=== PATIENT | female | born 1955 | race Caucasian/White ===

== ENCOUNTER 2017-05-07 13:24 | Inpatient (IN) | payer OTHER ==
[2017-05-07 15:18] LABS: Troponin I 0.016 ng/mL (< 0.028)
--- NOTE | 2017-05-07 15:53 | HP ---
PRIMARY CARE PHYSICIAN: Dr. Olsen at [facility]. REASON FOR ADMISSION: Chest pain, rule out acute coronary syndrome, pneumonia, hypoxia. HISTORY OF PRESENT ILLNESS: A 61-year-old female who has history of small cell lung cancer. She has finished chemotherapy last year in June. Subsequently , she also finished radiation therapy to the chest as well as the brain in October of this year. Patient had MRI brain which was negative for any metastasis in October as well as CT chest also showed improvement. Since then, the patient is no longer on any kind of chemoradiation therapy. The patient has no oxygen at home. For the last week, patient was having increasing cough productive of sputum, but no hemoptysis. The patient also lost significant amount of weight over the last few months. On Sunday, patient was having several times nausea and vomiting. The patient was not feeling good on Sunday, Sunday as well as Sunday. On Sunday morning, the patient was feeling burning discomfort in substernal area and all of suddenly she was feeling as if somebody pulling in her chest and grabbing sharp pain which goes about 10/10 in intensity and that is why she was trying to make appointment with primary care physician, but she cannot see her today and that is why the patient ended up to [facility]. Patient also has radiation site pain which is chronic for her and that has not changed, but this another pain in the substernal area was new and that made her apprehensive and that is why she went to [facility]. When she went to [facility], she was slightly hypertensive, tachypneic, her saturation was 87% on room air. With oxygen, her saturation improved and she was also afebrile. Over there, patient was given Rocephin, azithromycin, Solu-Medrol 125 mg, DuoNeb therapy, nitroglycerin, IV fluid, and aspirin, and subsequently she was transferred to our emergency room for rule out ACS and for suspected pneumonia. The patient had chest x-ray over there that showed decrease in cavitation in right upper lobe and consolidative changes, which is also there previously. Patient's chest pain is pleuritic in nature associated with shortness of breath and cough productive of yellowish white sputum. She denies any fever or chills. She denies any constipation or diarrhea. She denies any UTI symptoms. She denies any headache. She denies any focal motor symptoms. REVIEW OF SYSTEMS: The following complete review of systems was negative, unless otherwise mentioned in the HPI or below: Constitutional: Weight loss or gain, ability to conduct usual activities. Skin: Rash, itching. Eyes: Double vision, pain. ENT/Mouth: Nose bleeding, neck stiffness, pain, tenderness. Cardiovascular: Palpitations, dyspnea on exertion, orthopnea. Respiratory: Shortness of breath, wheezing, cough, hemoptysis, fever or night sweats. Gastrointestinal: Poor appetite, abdominal pain, heartburn, nausea, vomiting, constipation, or diarrhea. Genitourinary: Urgency, frequency, dysuria, nocturia. Musculoskeletal: Pain, swelling. Neurologic/Psychiatric: Anxiety, depression. Allergy/Immunologic: Skin rash, bleeding tendency. Please see my HPI for pertinent positive and negative. All other review of systems reviewed and negative except as mentioned in the HPI. PAST MEDICAL HISTORY: Small cell lung cancer treated with chemotherapy and radiation, COPD, chronic low back pain, hypertension. PAST SURGICAL HISTORY: Brain tumor removal, left neck lymph node removal, appendicectomy, and hysterectomy. PAST PSYCHIATRIC HISTORY: Anxiety and depression. SOCIAL HISTORY: Patient smokes about 1 pack per day. She lives at home. She denies any illicit drug abuse. She denies any alcohol abuse. FAMILY HISTORY: No strong family history of premature coronary artery disease, stroke or cancer. CURRENT HOME MEDICATIONS: Bisoprolol 5 mg p.o. daily, Zoloft 25 mg p.o. daily, Xanax twice daily p.r.n., Zofran p.r.n., [place] p.r.n., ProAir HFA as needed. EMERGENCY ROOM COURSE: Patient was given Rocephin, azithromycin, IV fluid, aspirin, nitro patch, Solu-Medrol 125 mg, and DuoNeb therapy at [facility]. ALLERGY: No known drug allergy. PHYSICAL EXAMINATION: VITAL SIGNS: Currently, blood pressure 137/83, pulse 86, respiratory rate 17, temperature 98.5, saturation 99% on 3 liter oxygen, saturation was 87% on room air at [facility], weight 39.4 kilograms. GENERAL: Patient is currently alert, awake, cachectic, no obvious acute distress. HEAD: Normocephalic, atraumatic. EYES: Pupils round, reactive to light. Extraocular muscles intact. ENT: Oropharynx within normal limits. Moist mucous membranes. No oral lesions. No pharyngeal erythema, no exudate. NECK: Supple. Range of motion is normal. No meningeal signs of irritation. LUNGS: Breath sounds reduced bilaterally, predominantly on the right upper lobe. No rales, no wheezes, no end expiratory wheezing, no muscles of respiration in use. CARDIAC: S1 and S2 regular. No murmur, no gallop, no rub. ABDOMEN: Soft, bowel sounds present, nontender, nondistended. No organomegaly , no mass, no suprapubic tenderness. BACK: Examination unremarkable, no CVA tenderness. EXTREMITIES: Upper extremity, passive movements of all joints are normal. Lower extremity, no edema. Good peripheral pulsation. No calf tenderness. SKIN: No skin rash. HEMATOLOGICAL SYSTEM: No lymphadenopathy. PSYCHIATRIC: Normal affect. HEMATOLOGICAL SYSTEM: No lymphadenopathy. NEUROLOGIC: Nonfocal examination. SIGNIFICANT LABORATORY DATA AND IMAGIN. CBC: WBC 12.8, hemoglobin 17.4, MCV 102.9, platelets 346 with bandemia and left shift. VBG: pH 7.44, pCO2 45.0, bicarbonate 30. BMP: Sodium 132, potassium 4.0, chloride 91, carbon dioxide 27, BUN 13, creatinine 0.63. Glucose 124. Lactic acid 2.0, AST 16, ALT 10, alkaline phosphatase 57, albumin 4.0. CK 79, CK-MB 4.8, troponin I less than 0.010. 2. EKG showing sinus arrhythmia and T-wave inversion in lead III, II, and AVF. EKG done over there, it showed inferior lateral ischemia. ASSESSMENT AND PLAN/IMPRESSION: 1. Acute chest pain. The patient's chest pain description is atypical. She has 2 types of chest pain on the right side, which is chronic pain after radiation and this pain substernally, which was started today was concerning for coronary artery disease and angina. Her EKG showing nonspecific ST-T changes in inferolateral wall. The patient has risk factors for coronary artery disease including her smoking history and hypertension. We will keep this patient in the hospital. We will do serial cardiac enzymes and rule out acute coronary syndrome. We will continue with aspirin 325 mg p.o. daily and nitroglycerin on p.r.n. basis. We will check lipid profile for risk stratification. Another possibility of her chest pain could be acid reflux given her several nausea and vomiting on Sunday and subsequently pain started. We will also treat that with the Protonix 40 mg p.o. daily, patient is feeling weak and she does not want to go for any more testing like stress test and that is why we will only conservatively monitor on telemetry floor for any arrhythmias. 2. Hypoxia. The patient's saturation was 87% on room air at [facility], this patient is not using oxygen at home. At this point, I am suspecting that because patient has pain on the right side which is also pleuritic in nature and there is another pain, maybe she had very poor respiratory effort, but she is also having ongoing smoking and she is at risk for chronic respiratory failure. During this admission, we will do 4-minute walk and we will assess her oxygen saturation and if below 88%, then we will arrange home oxygen upon discharge. 3. Right upper lobe consolidative changes. Based on current x-ray, cavity is reduced in size. When we compared old x-ray, almost pretty much each time, she had similar finding, but underlying superinfection cannot be entirely excluded and that is why we will treat her today with IV Levaquin and upon discharge we will consider p.o. Levaquin therapy. Patient also has increased cough. 4. Chronic obstructive pulmonary disease. The patient will be given DuoNeb therapy every 6 hourly, Dulera 2 puffs inhalation b.i.d. and we will also try Solu-Medrol 20 mg IV q.8 hourly, Mucinex 600 mg 3 times daily and we will assess for her oxygen requirement. 5. Small cell lung cancer. Patient already well treated with chemo and radiation therapy. Patient has appointment with Oncology on this month on , after 10 days. The patient will follow up with Oncology Clinic and further evaluation and treatment will defer to Oncology Clinic. 6. Hypertension. We will continue bisoprolol 5 mg p.o. daily. 7. Anxiety and depression. We will continue Zoloft 25 mg p.o. daily and Xanax 0.25 mg twice daily p.r.n. 8. Protein calorie malnutrition. Patient has cachexia and she has had significant weight loss. Patient will be given nutritional support with Ensure while in hospital. 9. Macrocytosis. We will start folic acid, vitamin B12, and multivitamin therapy while in hospital. 10. Deep venous thrombosis prophylaxis, Lovenox 30 mg subcutaneously daily. 11. Gastrointestinal prophylaxis, Protonix 40 mg p.o. daily. CODE STATUS: The patient is FULL CODE, this was discussed with her. Disposition plan based on clinical course. We are expecting patient's stay in the hospital more than 2 midnights. Plan of care discussed with the patient in detail. MTDD
[2017-05-07] MEDS ORDERED: Ondansetron ODT 4 MG TAB SL PRN (16:49)
[2017-05-07] MEDS ORDERED: Ondansetron HCl/PF 4 MG/2 ML Vial IVP PRN (16:49)
[2017-05-07] MEDS ORDERED: Sodium Chloride 0.65% Nasal 44 ML BOT EA NARE PRN (17:22)
[2017-05-07] MEDS ORDERED: Chloraseptic Spray 180 ml Bottle PO PRN (17:22)
[2017-05-07] MEDS ORDERED: Zolpidem Tartrate 5 MG TAB PO PRN (17:22)
[2017-05-07] MEDS ORDERED: ALPRAZolam 0.25 MG TAB PO PRN (17:22)
[2017-05-07] MEDS ORDERED: Milk Of Magnesia 30 ML UDCUP PO PRN (17:22)
[2017-05-07] MEDS ORDERED: Diabetic Tussin 200 MG/10 ML UDCUP PO PRN (17:22)
[2017-05-07] MEDS ORDERED: Senokot 8.6 MG TAB PO PRN (17:22)
[2017-05-07] MEDS ORDERED: Mag-Al 1200 mg/1200 mg/30 ML UDCUP PO PRN (17:22)
[2017-05-07] MEDS ORDERED: Benzonatate 100 MG CAP PO PRN (17:22)
[2017-05-07] MEDS ORDERED: Loratadine 10 MG TAB PO PRN (17:22)
[2017-05-07] MEDS ORDERED: Nitroglycerin 0.4 MG TAB (25 Tab Bottle) PO PRN (17:22)
[2017-05-07] MEDS ORDERED: Ondansetron ODT 4 MG TAB PO PRN (17:22)
[2017-05-07] MEDS ORDERED: Acetaminophen 325 MG TAB PO PRN (17:22)
[2017-05-07] MEDS ORDERED: Loperamide HCl 2 MG CAP PO PRN (17:22)
[2017-05-07 17:32] VITALS: BMI 16.6
[2017-05-07] MEDS ORDERED: FLU VACC QS2017-18 36 mo. & older 0.5 ML SYRINGE IM ONE (18:15)
[2017-05-07 18:25] LABS: Troponin I 0.018 ng/mL (< 0.028)
[2017-05-07] MEDS: Mometasone/Formoterol 120 PUFF INHALER INH SCH (18:30)
[2017-05-07] MEDS: HYDROcodone/Acetaminophen 5/325 mg Tablet PO PRN (18:35)
[2017-05-07] MEDS: Sodium Chloride 0.9% 1,000 ML IV SCH ×2 (18:37)
[2017-05-07 19:50] LABS: Bilirubin Small (Negative); Blood, Urine Negative (Negative); Glucose, Urine (Dipstick) Negative (Negative); Ketone, Urine 15 mg/dL (Negative); Nitrite Negative (Negative); Protein, Urine (Dipstick) Trace mg/dL (Neg-Trace)
[2017-05-07 19:54] LABS: Bacteria/HPF Rare-Few HPF (None Seen); Hyaline Casts/LPF 7-10 HYALINE CAST LPF (0-3 Hyaline)
[2017-05-07 20:14] LABS: RBC/HPF None Seen HPF (0-3); Renal Epithelial None Seen HPF (0-3); Transitional Epithelial NONE SEEN HPF (0-3)
[2017-05-07] MEDS: guaiFENesin ER 600 MG TAB PO SCH (20:57)
[2017-05-07 21:22] LABS: Troponin I Less than 0.010 ng/mL (< 0.028)
[2017-05-08] MEDS: HYDROcodone/Acetaminophen 5/325 mg Tablet PO PRN ×5 (00:36→19:19)
[2017-05-08] MEDS: Sodium Chloride 0.9% 1,000 ML IV SCH ×4 (00:53→22:05)
[2017-05-08 05:14] LABS: ALT (SGPT) Less than 7 U/L (8-55); AST (SGOT) 14 U/L (5-34); Alkaline Phosphatase 46 U/L (40-150); Anion Gap 11 mmol/L (10-20); BUN (Urea Nitrogen) 10 mg/dL (9.8-20.1); Bilirubin, Total 0.6 mg/dL (0.2-1.2); Calc. Creatinine Clearance 79 mL/min (70-130); Calcium 8.6 mg/dL (7.8-10.44); Carbon Dioxide 25 mmol/L (23-31); Chloride 96 mmol/L (98-107); Cholesterol 124 mg/dl (< 200 Desired); Estimated GFR-MDRD Greater than 90; Globulin 2.7 g/dL (2.4-3.5); LDL Cholesterol, Calculated 49 mg/dL; Protein, Total 6.1 g/dL (6.0-8.3)
[2017-05-08 05:20] LABS: #Lymphocytes 0.5 thou/uL (1.20-3.40); #Monocytes 0.4 thou/uL (0.11-0.59); #Neutrophils 5.7 thou/uL (1.40-6.50); %Eosinophils 0.1 % (0.0-10.0); %Lymphocytes 7.9 % (21.0-51.0); Hematocrit 40.6 % (36.0-47.0); Macrocytosis SLIGHT = 6-15 cells (100X) (0-5/hpf); Mean Platelet Volume 5.9 fL (7.4-10.4); Red Blood Cell (RBC) Count 3.88 mill/uL (4.20-5.40); White Blood Cell (WBC) Count 6.6 thou/uL (4.8-10.8)
[2017-05-08] MEDS: Mometasone/Formoterol 120 PUFF INHALER INH SCH ×2 (07:56→19:05)
[2017-05-08] MEDS: Aspirin 81 mg Enteric Coated Tablet PO SCH (08:29)
[2017-05-08] MEDS: Bisoprolol Fumarate 5 MG TAB PO SCH (08:29)
[2017-05-08] MEDS: Cyanocobalamin (Vitamin B-12) 1,000 MCG TAB PO SCH (08:30)
[2017-05-08] MEDS: guaiFENesin ER 600 MG TAB PO SCH ×2 (08:30→21:57)
[2017-05-08] MEDS: Multivitamin W/ Minerals 1 TAB PO SCH (08:30)
[2017-05-08] MEDS: Enoxaparin Sodium 30 MG/0.3 ML SYRINGE SC SCH (08:30)
[2017-05-08] MEDS: Folic Acid 1 MG TAB PO SCH (08:30)
--- NOTE | 2017-05-08 13:24 | PDOC.PN ---
- Subjective Encounter Start Date: 05/08/17 Encounter Start Time: 10:00 Patient seen and examined. Feels better. Some cough. No overnight events - Objective Resuscitation Status: Resuscitation Status FULL:Full Resuscitation MAR Reviewed: Yes Vital Signs & Weight: Vital Signs (12 hours) Temp Pulse Resp BP Pulse Ox 05/08/17 11:23 98.6 F 63 20 124/71 98 05/08/17 08:00 98.6 F 69 15 05/08/17 07:56 95 05/08/17 07:53 69 15 97 05/08/17 07:21 98.6 F 77 14 150/85 H 99 05/08/17 04:00 98.4 F 74 20 124/92 H 99 Weight Admit Weight 97 lb Weight 97 lb I&O: 05/07/17 05/08/17 05/09/17 06:59 06:59 06:59 Intake Total 944 240 Balance 944 240 Result Diagrams: 05/08/17 04:29 05/08/17 04:29 EKG Reviewed by me: Yes (Tele SR) Phys Exam - Physical Examination Constitutional: NAD Respiratory: no rales Scat rales/wheezing Cardiovascular: RRR, no rub Gastrointestinal: soft, non-tender, positive bowel sounds Musculoskeletal: no edema Neurological: non-focal, moves all 4 limbs Psychiatric: A&O x 3 Dx/Plan (1) Acute respiratory failure with hypoxia Code(s): J96.01 - ACUTE RESPIRATORY FAILURE WITH HYPOXIA Status: Acute (2) Chest pain Code(s): R07.9 - CHEST PAIN, UNSPECIFIED Status: Acute (3) Pneumonia Code(s): J18.9 - PNEUMONIA, UNSPECIFIED ORGANISM Status: Acute Comment: suspected Pneumococcal (4) COPD (chronic obstructive pulmonary disease) Status: Chronic (5) other issues per previous notes Status: Chronic Comment: HTN, Anxiety, Severe Protein Calorie Malnutrition, Macrocytosis, Lung Ca, Hyponatremia ?chronic - Plan cont current plan of care, continue antibiotics, DVT proph w/lovenox, DVT proph w/SCDs * Cont current meds as below * AM labs * Consult Pulmonary * Cont nebs Review of Systems - Review of Systems Cardiovascular: negative: Chest Pain, Palpitations, Orthopnea, Paroxysmal Noc. Dyspnea, Edema, Light [place]aded[place], Other Gastrointestinal: negative: Nausea, Vomiting, Abdominal Pain, Diarrhea, Constipation, Melena, Hematochezia, Other - Medications/Allergies Allergies/Adverse Reactions: Allergies Allergy/AdvReac Type Severity Reaction Status Date / Time No Known Allergies Allergy Verified 06/08/16 16:43 Medications: Current Medications Acetaminophen (Tylenol) 650 mg PO Q4H PRN PRN Reason: Headache/Fever or Pain Hydrocodone Bitart/Acetaminophen ([place] 5/325) 1 tab PO Q4H PRN PRN Reason: Moderate Pain (4-6) Last Admin: 05/08/17 11:14 Dose: 1 tab Al Hydroxide/Mg Hydroxide (Maalox) 30 ml PO Q6H PRN PRN Reason: Heartburn or Indigestion Albuterol/Ipratropium (Duoneb) 3 ml NEB [id number] [facility] Last Admin: 05/08/17 07:53 Dose: 3 ml Alprazolam (Xanax) 0.25 mg PO BIDPRN PRN PRN Reason: Anxiety Aspirin (Ecotrin) 81 mg PO DAILY [facility] Last Admin: 05/08/17 08:29 Dose: 81 mg Benzonatate (Tessalon) 100 mg PO Q4H PRN PRN Reason: Cough Bisoprolol Fumarate (Zebeta) 5 mg PO DAILY [facility] Last Admin: 05/08/17 08:29 Dose: 5 mg Cyanocobalamin (Vitamin B-12) 1,000 mcg PO DAILY [facility] Last Admin: 05/08/17 08:30 Dose: 1,000 mcg Enoxaparin Sodium (Lovenox) 30 mg SC 0900 [facility] Last Admin: 05/08/17 08:30 Dose: 30 mg Folic Acid (Folvite) 1 mg PO DAILY [facility] Last Admin: 05/08/17 08:30 Dose: 1 mg Guaifenesin (Robitussin Sf) 200 mg PO Q4H PRN PRN Reason: Cough Guaifenesin (Mucinex) 600 mg PO Q12HR [facility] Last Admin: 05/08/17 08:30 Dose: 600 mg Hydralazine HCl (Apresoline) 10 mg SLOW IVP Q4H PRN PRN Reason: Systolic BP > 180 Levofloxacin 500 mg/ Device 100 mls @ 100 mls/hr IVPB Q24HR [facility] Last Admin: 05/07/17 18:36 Dose: 100 mls Sodium Chloride (Normal Saline 0.9%) 1,000 mls @ 75 mls/hr IV .[id number] [facility] Last Admin: 05/08/17 08:33 Dose: 1,000 mls Iron/Minerals/Multivitamins (Theragran M) 1 tab PO DAILY [facility] Last Admin: 05/08/17 08:30 Dose: 1 tab Loperamide HCl (Imodium) 2 mg PO PRN PRN PRN Reason: Diarrhea/Loose Stools Loratadine (Claritin) 10 mg PO DAILYPRN PRN PRN Reason: Sinus Symptoms Magnesium Hydroxide (Milk Of Magnesium) 30 ml PO DAILYPRN PRN PRN Reason: Constipation Methylprednisolone Sodium Succinate (Solu-Medrol) 20 mg IVP 0400,1200,2000 [facility] Last Admin: 05/08/17 11:15 Dose: 20 mg Mometasone Furoate/Formoterol Fumar (Dulera 200 Mcg/5 Mcg Inhaler) 2 puff INH BID-RT [facility] Last Admin: 05/08/17 07:56 Dose: 2 puff Nitroglycerin (Nitrostat) 0.4 mg PO Q5MIN PRN PRN Reason: Chest Pain Ondansetron HCl (Zofran Odt) 4 mg PO Q6H PRN PRN Reason: Nausea/Vomiting Ondansetron HCl (Zofran) 4 mg IVP Q6H PRN PRN Reason: Nausea/Vomiting Pantoprazole Sodium (Protonix) 40 mg PO 2100 [facility] Last Admin: 05/07/17 20:57 Dose: 40 mg Phenol (Chloraseptic [place] 180 Ml Bot) 0 ml PO PRN PRN PRN Reason: Sore Throat Senna (Senokot) 2 tab PO HSPRN PRN PRN Reason: Constipation Sertraline HCl (Zoloft) 25 mg PO DAILY [facility] Last Admin: 05/08/17 08:30 Dose: 25 mg Sodium Chloride ([place] Nasal [place] 0.65%) 0 ml EA NARE QIDPRN PRN PRN Reason: Nasal Congestion Zolpidem Tartrate (Ambien) 5 mg PO HSPRN PRN PRN Reason: Insomnia
--- NOTE | 2017-05-08 13:52 | PQF ---
Date: 05-08-17 ATTN: DR. FIGUEROA DE LA VEGA Please exercise your independent, professional judgment in responding to the clarification form. Clinical indicators are provided on the bottom of this form for your review Please check appropriate box(s): [ ] Protein Calorie Malnutrition: [ ] Mild [ ] Moderate [ ] Severe [ ] Other Malnutrition (please specify) __ [ ] Other diagnosis [ ] Unable to determine In addition, please specify: Present on Admission (POA): [ ] Yes [ ] No [ ] Unable to determine CLINICAL INDICATORS - SIGNS / SYMPTOMS / LABS BMI: 16.6 BEFORE SCHOOL BABYSITTER CONSULT 05-08-17: REPORTS THAT HER APPETITE IS FINALLY COMING BACK. BEFORE ADMIT PATIENT SAYS HER APPETITE WAS "VERY BAD AND LOUSY, THREW UP A LOT, HAD TROUBLE BREATHING, AND DID NOT EAT FOR 3 DAYS . HER NORMAL WEIGHT IS BETWEEN 125-130 LBS AND HAS NOT WEIGHED THIS AMOUNT SINCE MAY/JUNE OF 2016 BEFORE SCHOOL BABYSITTER CONSULT 05-08-17: BEFORE SCHOOL BABYSITTER REMITTANCE CLERK NOTICED SLIGHT MUSCLE WASTING IN NECK, BACK AND INTEROSSEOUS SPACES. MD NOTES PT APPEARS CACHECTIC. RISK FACTORS: BEFORE SCHOOL BABYSITTER CONSULT 05-08-17: SMALL CELL LUNG CA S/P CHEMO/ RADIATION, COPD, CHRONIC LOW BACK PAIN, BRAIN TUMOR REMOVAL S/P RADIATION TO BRAIN, REMOVAL OF L LYMPH NODE TREATMENT: DIETARY CONSULT 05-08-17: RECOMMEND LIBERATING TO REGULAR DIET TO PROMOTE PO INTAKE AND WT GAIN, CONTINUE ENSURE ENLIVE TID (This form is maintained as a part of the permanent medical record) 2014 [employer]. All Rights Reserved [email or web address] Office: [phone] Mark DOTSON
--- NOTE | 2017-05-08 18:31 | CON ---
DATE OF CONSULTATION: 05/08/2017 HISTORY OF PRESENT ILLNESS: Ms. Steven is a very pleasant 61-year-old female, who is known for some time. She presented with complaints of cough and chest congestion became quite severe. She says she has improved. She has a history of being diagnosed with small cell lung cancer. She has undergone chemotherapy and prophylactic brain radiation. Her tissue diagnosis came from mediastinoscopy in 05/2016. Head CT showed no brain mets. Bone scan showed no evidence of bony metastatic disease. She has been admitted, started on antibiotics and steroids. She says she feels better. A chest radiograph was reviewed by me and it is unchanged from her last film. PAST MEDICAL HISTORY: 1. Remarkable for chronic chest wall pain. 2. Chronic obstructive pulmonary disease. 3. Hypertension. 4. History of an arachnoid cyst that was resected via craniotomy in 1999 in [facility], in the [facility]. 5. History of an appendectomy. 6. Status post hysterectomy. 7. 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 SOCIAL HISTORY: She is a smoker. She is not a daily drinker. FAMILY HISTORY: There is no family history of lung disease at an early age. REVIEW OF SYSTEMS: Otherwise negative. PHYSICAL EXAMINATION: VITAL SIGNS: She is afebrile, heart rate 63, respiratory rate 20, oximetry is 98%, blood pressure 124/71. HEENT: Pupils are equal. Sclerae is anicteric. Extraocular movements are full. NECK: Supple. LUNGS: Remarkable for diffuse wheezes. HEART: Regular rhythm. S1 and S2 are normal. ABDOMEN: Soft and nontender. EXTREMITIES: Without clubbing, cyanosis or edema. IMPRESSION: Chronic obstructive pulmonary disease exacerbation. I doubt she has pneumonia. I see nothing to suggest that her wheezing is secondary to endobronchial or tracheal recurrence of disease. Steroids, antibiotics, nebulizer treatments, cough suppression and mucolytics are indicated and she will be followed while she is here. I will notify Oncology of her admission. NILA
[2017-05-09] MEDS: HYDROcodone/Acetaminophen 5/325 mg Tablet PO PRN ×4 (04:04→20:31)
[2017-05-09 06:24] LABS: #Lymphocytes 0.5 thou/uL (1.20-3.40); #Monocytes 0.4 thou/uL (0.11-0.59); #Neutrophils 6.1 thou/uL (1.40-6.50); %Eosinophils 0.3 % (0.0-10.0); %Lymphocytes 6.5 % (21.0-51.0); %Monocytes 5.5 % (0.0-10.0); Mean Platelet Volume 6.3 fL (7.4-10.4); Red Blood Cell (RBC) Count 4.16 mill/uL (4.20-5.40); White Blood Cell (WBC) Count 6.9 thou/uL (4.8-10.8)
[2017-05-09 06:50] LABS: Anion Gap 11 mmol/L (10-20); BUN (Urea Nitrogen) 10 mg/dL (9.8-20.1); BUN/Creatinine Ratio 18.18; Calc. Creatinine Clearance 80 mL/min (70-130); Carbon Dioxide 25 mmol/L (23-31); Chloride 98 mmol/L (98-107); Estimated GFR-MDRD Greater than 90; Magnesium 1.4 mg/dL (1.6-2.6); Phosphorus 2.8 mg/dL (2.3-4.7)
[2017-05-09] MEDS: Mometasone/Formoterol 120 PUFF INHALER INH SCH ×2 (06:59→19:01)
[2017-05-09] MEDS ORDERED: Magnesium Sulfate 2 GM in Sodium Chloride 0.9% 100 ML IVPB SCH (08:15)
[2017-05-09] MEDS ORDERED: Magnesium 2 GM/NS 0.9% 100 ML 2 GM in Premix Bag 1 BAG IVPB SCH (08:30)
[2017-05-09] MEDS: Bisoprolol Fumarate 5 MG TAB PO SCH (09:14)
[2017-05-09] MEDS: Folic Acid 1 MG TAB PO SCH (09:14)
[2017-05-09] MEDS: guaiFENesin ER 600 MG TAB PO SCH ×2 (09:14→20:30)
[2017-05-09] MEDS: Multivitamin W/ Minerals 1 TAB PO SCH (09:14)
[2017-05-09] MEDS: Aspirin 81 mg Enteric Coated Tablet PO SCH (09:14)
[2017-05-09] MEDS: Enoxaparin Sodium 30 MG/0.3 ML SYRINGE SC SCH (09:15)
[2017-05-09] MEDS: Cyanocobalamin (Vitamin B-12) 1,000 MCG TAB PO SCH (09:15)
[2017-05-09] MEDS: Sodium Chloride 0.9% 1,000 ML IV SCH (11:17)
[2017-05-09] MEDS ORDERED: Iopamidol 370 76% 100 ML VIAL ONE (13:32)
--- NOTE | 2017-05-09 17:10 | PRG ---
DATE OF SERVICE: 05/09/2017 SUBJECTIVE: Says she feels much better. She says she can lay down flat. OBJECTIVE: VITAL SIGNS: She is afebrile, heart rate 60, respiratory rate is 18, oximetry is 99, blood pressure 126/72. LUNGS: Dramatically improved, she rarely has any wheezes today. HEART: Regular rhythm. ABDOMEN: Soft. IMPRESSION: 1. Chronic obstructive pulmonary disease exacerbation. 2. History of small cell lung cancer. She has passed due for followup CT. I believe Dr. Sinclair planned one in March, she did not keep her appointment, so I will order a CT of her chest with contrast. I would hope that we can switch her to p.o. medicine successfully today and consider discharge him in the morning. NILA
--- NOTE | 2017-05-09 17:52 | PDOC.PN ---
- Subjective Encounter Start Date: 05/09/17 Encounter Start Time: 10:00 Patient seen and examined. No new complaints. No overnight events. SOB improving. - Objective Resuscitation Status: Resuscitation Status FULL:Full Resuscitation MAR Reviewed: Yes Vital Signs & Weight: Vital Signs (12 hours) Temp Pulse Resp BP Pulse Ox 05/09/17 15:30 98.7 F 78 16 119/78 98 05/09/17 14:41 62 16 05/09/17 11:28 97.2 F L 62 18 126/72 99 05/09/17 08:59 97.2 F L 64 16 100 05/09/17 07:38 97.2 F L 64 16 150/91 H 100 05/09/17 07:02 99 05/09/17 06:59 70 16 99 Weight Admit Weight 97 lb Weight 106 lb I&O: 05/08/17 05/09/17 05/10/17 06:59 06:59 06:59 Intake Total 944 1614 700 Balance 944 1614 700 Result Diagrams: 05/09/17 05:52 05/09/17 05:52 EKG Reviewed by me: Yes (Tele SR) Phys Exam - Physical Examination Constitutional: NAD Respiratory: no wheezing, no rales Scat rhonchi Cardiovascular: RRR, no rub Gastrointestinal: soft, non-tender, positive bowel sounds Musculoskeletal: no edema Neurological: moves all 4 limbs Psychiatric: A&O x 3 Dx/Plan (1) Acute respiratory failure with hypoxia Code(s): J96.01 - ACUTE RESPIRATORY FAILURE WITH HYPOXIA Status: Acute (2) Chest pain Code(s): R07.9 - CHEST PAIN, UNSPECIFIED Status: Acute Comment: troponins negative (3) Pneumonia Code(s): J18.9 - PNEUMONIA, UNSPECIFIED ORGANISM Status: Suspected Comment: suspected Pneumococcal (4) COPD (chronic obstructive pulmonary disease) Status: Chronic Comment: with exacerbation (5) Hypomagnesemia Code(s): E83.42 - HYPOMAGNESEMIA Status: Acute (6) other issues per previous notes Status: Chronic Comment: HTN, Anxiety, Severe Protein Calorie Malnutrition, Macrocytosis, Lung Ca, Hyponatremia ?chronic - Plan cont current plan of care, DVT proph w/SCDs * Chest CT ordered * Await Echo * Cont current meds as below * AM labs * Consult Oncology * Cont nebs, Atbx, PO steroids and other meds * Replace Magnessium Review of Systems - Review of Systems Cardiovascular: negative: Chest Pain, Palpitations, Orthopnea, Paroxysmal Noc. Dyspnea, Edema, Light Headedness, Other Gastrointestinal: negative: Nausea, Vomiting, Abdominal Pain, Diarrhea, Constipation, Melena, Hematochezia, Other - Medications/Allergies Allergies/Adverse Reactions: Allergies Allergy/AdvReac Type Severity Reaction Status Date / Time No Known Allergies Allergy Verified 06/08/16 16:43 Medications: Current Medications Acetaminophen (Tylenol) 650 mg PO Q4H PRN PRN Reason: Headache/Fever or Pain Hydrocodone Bitart/Acetaminophen ([place] 5/325) 1 tab PO Q4H PRN PRN Reason: Moderate Pain (4-6) Last Admin: 05/09/17 14:45 Dose: 1 tab Al Hydroxide/Mg Hydroxide (Maalox) 30 ml PO Q6H PRN PRN Reason: Heartburn or Indigestion Albuterol/Ipratropium (Duoneb) 3 ml NEB [id number] ON LICENSE OF [facility] Last Admin: 05/09/17 14:41 Dose: 3 ml Alprazolam (Xanax) 0.25 mg PO BIDPRN PRN PRN Reason: Anxiety Aspirin (Ecotrin) 81 mg PO DAILY ON LICENSE OF [facility] Last Admin: 05/09/17 09:14 Dose: 81 mg Benzonatate (Tessalon) 100 mg PO Q4H PRN PRN Reason: Cough Cyanocobalamin (Vitamin B-12) 1,000 mcg PO DAILY ON LICENSE OF [facility] Last Admin: 05/09/17 09:15 Dose: 1,000 mcg Enoxaparin Sodium (Lovenox) 30 mg SC 0900 ON LICENSE OF [facility] Last Admin: 05/09/17 09:15 Dose: 30 mg Guaifenesin (Robitussin Sf) 200 mg PO Q4H PRN PRN Reason: Cough Guaifenesin (Mucinex) 600 mg PO Q12HR ON LICENSE OF [facility] Last Admin: 05/09/17 09:14 Dose: 600 mg Hydralazine HCl (Apresoline) 10 mg SLOW IVP Q4H PRN PRN Reason: Systolic BP > 180 Sodium Chloride (Normal Saline 0.9%) 1,000 mls @ 75 mls/hr IV .[id number] ON LICENSE OF [facility] Last Admin: 10/18/17 11:17 Dose: 1,000 mls Iron/Minerals/Multivitamins (Theragran M) 1 tab PO DAILY ON LICENSE OF [facility] Last Admin: 05/09/17 09:14 Dose: 1 tab Levofloxacin (Levaquin) 500 mg PO 2000 ON LICENSE OF [facility] Loperamide HCl (Imodium) 2 mg PO PRN PRN PRN Reason: Diarrhea/Loose Stools Loratadine (Claritin) 10 mg PO DAILYPRN PRN PRN Reason: Sinus Symptoms Magnesium Hydroxide (Milk Of Magnesium) 30 ml PO DAILYPRN PRN PRN Reason: Constipation Last Admin: 05/09/17 09:13 Dose: 30 ml Mometasone Furoate/Formoterol Fumar (Dulera 200 Mcg/5 Mcg Inhaler) 2 puff INH BID-RT ON LICENSE OF [facility] Last Admin: 05/09/17 06:59 Dose: 2 puff Nitroglycerin (Nitrostat) 0.4 mg PO Q5MIN PRN PRN Reason: Chest Pain Ondansetron HCl (Zofran Odt) 4 mg PO Q6H PRN PRN Reason: Nausea/Vomiting Ondansetron HCl (Zofran) 4 mg IVP Q6H PRN PRN Reason: Nausea/Vomiting Pantoprazole Sodium (Protonix) 40 mg PO 2100 ON LICENSE OF [facility] Last Admin: 05/08/17 21:57 Dose: 40 mg Phenol (Chloraseptic [place] 180 Ml Bot) 0 ml PO PRN PRN PRN Reason: Sore Throat Prednisone (Prednisone) 40 mg PO QAM-[facility] Senna (Senokot) 2 tab PO HSPRN PRN PRN Reason: Constipation Sertraline HCl (Zoloft) 25 mg PO DAILY ON LICENSE OF [facility] Last Admin: 05/09/17 09:14 Dose: 25 mg Sodium Chloride ([place] Nasal [place] 0.65%) 0 ml EA NARE QIDPRN PRN PRN Reason: Nasal Congestion Sodium Chloride (Flush - Normal Saline) 10 ml IVF Q12HR ON LICENSE OF [facility] Last Admin: 05/09/17 09:16 Dose: Not Given Sodium Chloride (Flush - Normal Saline) 10 ml IVF PRN PRN PRN Reason: Saline Flush Zolpidem Tartrate (Ambien) 5 mg PO HSPRN PRN PRN Reason: Insomnia
--- NOTE | 2017-05-09 19:38 | CT ---
CT CHEST WITH CONTRAST 05/09/17 Multiple axial tomograms obtained through chest with IV enhancement. HISTORY: Lung cancer. Post chemo and radiation. Comparison made to CT chest of 10/16/16 and 05/11/16. Current study again shows opacification of the right lung apex with an area of cavitation in the rig ht lung apex which appears similar to the recent study of 10/16/16. There is dense consolidation of t he surrounding lung parenchyma with air bronchograms. This is also similar to the prior study. I can not exclude a recurrent neoplasm in the right apex. There is abnormal soft tissue density extending to the right suprahilar region with a mass-like area measuring 2.5 cm AP dimension. There is soft ti ssue density surrounding the right main stem bronchus and extending into the right hilum possibly re lating to recurrent neoplasm or post radiation change. The right mid and lower lung remain clear. The left lung remains clear. A subtle area of parenchymal opacity in the posterior left upper lobe shows slight spiculated appearance but is a stable finding when compared to the prior exams. Images through the upper abdomen show unremarkable appearing liver, spleen and pancreas. There is ivory ggestion of mild proximal small bowel dilatation although this is inadequately evaluated. IMPRESSION: 1. Opacification of the right apex with pleural thickening in an air cavity in the right apex, similar in appearance to the prior exam of 10/16/16. Dense consolidation of the surrounding parenchym a with air bronchograms. Abnormal soft tissue density extending into the right suprahilar region and right hilum. These changes may represent post radiation change and have a similar appearance to the prior exam. I cannot exclude recurrent neoplasm. 2. Lungs otherwise remain clear and stable. A spiculated nodular density in the posterior left upper lobe is stable. POS: [facility]
[2017-05-09] MEDS: Ondansetron HCl/PF 4 MG/2 ML Vial IVP PRN (20:34)
[2017-05-10] MEDS: Sodium Chloride 0.9% 1,000 ML IV SCH ×2 (00:19→12:36)
[2017-05-10] MEDS: HYDROcodone/Acetaminophen 5/325 mg Tablet PO PRN ×3 (03:36→13:35)
[2017-05-10 05:35] LABS: Magnesium 1.5 mg/dL (1.6-2.6)
[2017-05-10] MEDS: Ondansetron HCl/PF 4 MG/2 ML Vial IVP PRN (07:58)
[2017-05-10] MEDS ORDERED: Magnesium Sulfate 3 GM, Admixture Fee 1 EACH in Sodium Chloride 0.9% 100 ML IVPB SCH (08:00)
[2017-05-10] MEDS ORDERED: predniSONE 20 MG TAB PO SCH (08:00)
[2017-05-10] MEDS: Mometasone/Formoterol 120 PUFF INHALER INH SCH (08:03)
[2017-05-10] MEDS: Aspirin 81 mg Enteric Coated Tablet PO SCH (08:33)
[2017-05-10] MEDS: Multivitamin W/ Minerals 1 TAB PO SCH (08:35)
[2017-05-10] MEDS: guaiFENesin ER 600 MG TAB PO SCH (08:36)
[2017-05-10] MEDS: Cyanocobalamin (Vitamin B-12) 1,000 MCG TAB PO SCH (08:36)
[2017-05-10] MEDS: Enoxaparin Sodium 30 MG/0.3 ML SYRINGE SC SCH (08:37)
--- NOTE | 2017-05-10 14:45 | CON ---
DATE OF CONSULTATION: 05/09/2017 REASON FOR CONSULTATION: Lung cancer. HISTORY OF PRESENT ILLNESS: Ms. 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 She has been in remission since 08/2016. She presented t [facility] on 05/07/2017 with complaints of cough, congestion, and shortness of breath. She was started on antibiotics and steroids and has improved dramatically. The patient was last seen in [facility] in December where she was complaining of pain at the radiation site on her right chest. She crawford s [place] for which she has been taking. Over the past few weeks, patient says she has been ill with increasing shortness of breath. She does admit to about a 10 pound weight loss over the last few mo nths. She denies any chest pain, no abdominal discomfort, no changes in her bowel movements. She d enies any dysuria, no neurologic changes or swelling in her extremities. PAST MEDICAL HISTORY: 1. Small cell carcinoma of the lung, limited and stage in remission. 2. 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 3. Hypertension. 4. Tobacco use. 5. Depression. 6. Hepatitis C. 7. Prophylactic whole brain radiation in 2016. PAST SURGICAL HISTORY: 1. Craniotomy for brain cyst in 2000. 2. Appendectomy. 3. Hysterectomy. ALLERGIES: No known drug allergies. HOME MEDICATIONS: 1. Tylenol #3 p.r.n. pain. 2. ProAir inhaler q.4 hours. 3. Zoloft 100 mg daily. FAMILY HISTORY: Noncontributory. SOCIAL HISTORY: , has one child, current everyday smoker. No alcohol or illicit drug use. REVIEW OF SYSTEMS: Ten-point review of systems is negative except for noted in HPI. PHYSICAL EXAMINATION: VITAL SIGNS: Temperature is 97.2, pulse is 62, respiratory rate 18, BP is 126/72, she is 99% on letha m air. GENERAL: A thin female in no acute distress. HEENT: Normocephalic, atraumatic. Pupils equal and reactive to light. NECK: Supple. CARDIOVASCULAR: Regular rate and rhythm. LUNGS: Diminished throughout. EXTREMITIES: No clubbing, cyanosis or edema. SKIN: No rash. GASTROINTESTINAL: Abdomen is soft and nontender. Bowel sounds are positive. NEUROLOGICAL: Nonfocal. PSYCHIATRIC: The patient is alert and oriented and appropriate. PERTINENT LABORATORY DATA AND X-RAYS: Current WBCs were 6.9, hemoglobin 14.8, hematocrit 44, platel et count 282,000, 87% neutrophils and 6% lymphocytes. Sodium is 132, potassium 4.0, chloride 98, CO 2 is 25, BUN is 10, creatinine 0.55, calcium is 9, magnesium 1.5, total bilirubin is 0.6, AST is 14, ALT is less than 7, alkaline phosphatase is 46. Serum total protein 6.1, albumin 3.4, and globulin 2.7. Radiology per HPI. ASSESSMENT: 1. Small cell carcinoma of the lung in remission. 2. Chronic obstructive pulmonary disease exacerbation. 3. Chronic obstructive pulmonary disease exacerbation. PLAN: The patient is being treated by her copyholder, Dr. Feng. She has a CT scan of her chest pending. Her only complaint is of pain at the radiation site which has been chronic for several mo nths. She actually denies shortness of breath at this time and is feeling much better. She has a richard appointment with Dr. Sinclair on 05/15/2017 and we [facility]. Thank you for the consult.
[2017-05-10 16:05] VITALS: BP 135/84; TEMP 97.9
--- NOTE | 2017-05-10 16:18 | DIS ---
DATE OF ADMISSION: 05/07/2017 DATE OF DISCHARGE: 05/10/2017 DISCHARGE DISPOSITION: Home. FOLLOWUP: 1. Follow up with primary care physician, Dr. Chen in 1 week. 2. Follow up with Dr. Sinclair and Dr. Feng as scheduled. ALLERGIES: No known drug allergies. Basic metabolic profile with magnesium in 1 week is recommended. Primary care physician advised to follow. The patient was seen and examined on the day of discharge. Denies any new complaints. No chest keith n, shortness of breath, palpitations. BRIEF HOSPITAL COURSE: Patient is a 61-year-old female with lung cancer and COPD, who presented to the hospital with chest discomfort, along with shortness of breath. Please refer to the history and physical dated 05/07/2017 for further details. The patient was admitted to the hospital with a diagnosis of acute hypoxic respiratory failure secon bradford to chronic obstructive pulmonary disease exacerbation with suspected pneumonia. She was starte d on broad-spectrum antibiotics. The patient was seen by Pulmonary, Dr. Feng. An echocardiogram w as performed due to chest discomfort that showed normal left ventricular ejection fraction of 55%-60 % with trace tricuspid regurgitation. Her serial cardiac enzymes were normal. She was also started on steroids that has been changed to p.o. She has been cleared by consultants for discharge. FINAL DIAGNOSES: 1. Acute hypoxic respiratory failure secondary to chronic obstructive pulmonary disease exacerbatio n with suspected pneumonia. 2. Chest discomfort, unlikely to be cardiac. Troponins were normal. Echocardiogram showed normal left ventricular ejection fraction. 3. Electrolyte imbalance. The patient had hyponatremia and hypomagnesemia. Sodium on admission wa s 128 and at discharge was 132. Magnesium on the day of discharge was 1.5. The patient received 3 grams magnesium on the day of discharge. Repeat labs in 1 week is recommended. 4. Hypertension. 5. Anxiety and depression. 6. Severe protein-calorie malnutrition. 7. History of lung cancer. 8. Macrocytosis. DIAGNOSTIC TESTS: CT scan of the chest with IV contrast showed opacification of the right apex with pleural thickening in the air cavity with dense consolidation of the surrounding parenchyma with ai r bronchograms. INPATIENT CONSULTANTS: 1. Pulmonary, Dr. Feng 2. Oncology, Dr. Sinclair. Plan of care was discussed with the patient. She stated understanding.
--- NOTE | 2017-05-10 16:47 | PRG ---
DATE OF SERVICE: 05/10/2017 SUBJECTIVE: Era Steven did well overnight. CT was reviewed. I see no significant change in her right upper lobe. There is linear density or apex. It looks like a scar to me on the left. OBJECTIVE: LUNGS: Clear today. HEART: Regular rhythm. ABDOMEN: Soft. IMPRESSION: Chronic obstructive pulmonary disease exacerbation with bronchitis. PLAN: Prednisone taper, nebulizer treatments. Follow up with me in 2 weeks. She will keep her fol low up with the oncologist in a week.
== END 2017-05-10 16:30 | disposition home or self-care (01) | DRG 189 ==
LOC: ERS 13:24 → 2SE 14:57
PROVIDERS: ADMIT Internal Medicine; ATTEND Internal Medicine
DX: J96.01 Acute respiratory failure with hypoxia (principal); E43 Unspecified severe protein-calorie malnutrition; J18.9 Pneumonia, unspecified organism; E87.0 Hyperosmolality and hypernatremia; J44.0 Chronic obstructive pulmonary disease with (acute) lower respiratory infection; J44.1 Chronic obstructive pulmonary disease with (acute) exacerbation; Z68.1 Body mass index [BMI] 19.9 or less, adult; D75.89 Other specified diseases of blood and blood-forming organs; E83.42 Hypomagnesemia; I10 Essential (primary) hypertension; F32.9 Major depressive disorder, single episode, unspecified; F41.9 Anxiety disorder, unspecified; F17.210 Nicotine dependence, cigarettes, uncomplicated; Z92.3 Personal history of irradiation; Z92.21 Personal history of antineoplastic chemotherapy; Z85.118 Personal history of other malignant neoplasm of bronchus and lung; Z85.819 Personal history of malignant neoplasm of unspecified site of lip, oral cavity, and pharynx
CPT/HCPCS: 36415; 71260; 80053; 80061; 80069; 81001; 83735; 84295; 85025; 90471; 90682; 90732; 93005; 93306; 94640; 94664; 94760; A4216; G0008; G0009; G8978-GP-CJ; G8979-GP-CH; J1650; J1956; J2405; J2920; J3475; J7050; J7506; J7620; Q0162; Q2036

== ENCOUNTER 2017-08-02 19:20 | Inpatient (IN) | payer OTHER ==
[2017-08-02] MEDS ORDERED: Albuterol Sulfate 2.5 mg/3 ml Neb ONE (20:06)
[2017-08-03 00:06] VITALS: BMI 16.0
[2017-08-03] MEDS ORDERED: Docusate 100 MG CAP PO PRN (05:18)
[2017-08-03] MEDS ORDERED: Milk Of Magnesia 30 ML UDCUP PO PRN (05:18)
[2017-08-03] MEDS ORDERED: Acetaminophen 325 MG TAB PO PRN (05:18)
[2017-08-03] MEDS ORDERED: hydrALAZINE 20 MG/ML VIAL SLOW IVP PRN (05:18)
[2017-08-03] MEDS ORDERED: Mag-Al 1200 mg/1200 mg/30 ML UDCUP PO PRN (05:18)
--- NOTE | 2017-08-03 05:34 | HP ---
PRIMARY CARE PHYSICIAN: Dr. Nemo Chen. CHIEF COMPLAINT: Feeling bad and having cough and fever. HISTORY OF PRESENT ILLNESS: Ms. Steven is a pleasant 62-year-old female who has a history of small c ell lung cancer as well as chronic respiratory failure secondary to chronic obstructive pulmonary dis ease. When asked why she came to the hospital, she says that she has been having a cough productive of some yellow to greenish sputum. She also says that she has been having fever off and on for the p ast week. When asked if she is short of breath, she says she is short of breath "all the time" and c annot really tell whether or not she is more short of breath now than she has been in the past. She says she really has never felt okay ever since having her surgery for lung cancer. She also says mayco t she has been hurting very bad primarily in the right upper chest. She says it is worse when she co ughs, but it is pretty much there all the time. She denies any hemoptysis. She has had some nausea and vomiting, but says in general, she has a fairly good appetite though. Because of her symptoms, a s well as some mild hypoxemia, she is being admitted to the hospital for COPD exacerbation. REVIEW OF SYSTEMS: Constitutional: There have been subjective fever and chills. No night sweats, n o weight loss. HEENT: She denies any headaches, no dizziness, no visual changes, no sore throat, rh inorrhea, neck pain, no adenopathy. Pulmonary: As the history of present illness. Cardiovascular: She has had pain in her chest, but it is primarily on the right side. No PND, no or thopnea. She has stable shortness of breath. Gastrointestinal: She admits to some nausea and vomit ing, but no diarrhea. No hematemesis, no melena, no abdominal pain. Genitourinary: No urinary freq uency, hematuria, no hesitancy. Neurologic: No focal weakness, numbness, no seizures. Psychiatric: No symptoms of anxiety or depression. Skin and Integument: No skin changes. No rash. PAST MEDICAL HISTORY: Significant for small cell lung cancer, COPD, chronic low back pain, hypertens ion, anxiety, as well as depression. PAST SURGICAL HISTORY: She has had a brain tumor removed, left neck lymph node surgery, appendectomy , and hysterectomy. FAMILY HISTORY: Significant for heart disease on her mother's side. ALLERGIES: No known drug allergies. SOCIAL HISTORY: She lives alone. 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 She is a former smoker. She quit 3 years ago. She formerly smoked a pack a day. Denies any alcohol use. She wishes to be a full code. CURRENT MEDICATIONS: Include DuoNeb, Proventil inhaler, Zoloft 100 mg at bedtime, pantoprazole 40 mg daily, prednisone as directed. PHYSICAL EXAMINATION: GENERAL: She is alert and oriented. She appears to be in no acute distress. She is cachectic in ap pearance. VITAL SIGNS: Blood pressure was 147/80, heart rate 82, respiratory rate of 18, temperature is 98.4. HEENT: Pupils are equal, round, and reactive. Extraocular muscles are intact. Sclerae are anicteri c. Throat, no erythema, no exudates. NECK: No adenopathy, no bruits. LUNGS: She has got decreased air movement. There is no wheezing or rales. CARDIOVASCULAR: She has a normal S1 and S2. No S3 or S4. No murmurs, clicks or rubs. ABDOMEN: Soft, it is nontender, nondistended. Positive for bowel sounds. No rebound or guarding. EXTREMITIES: There is no edema. NEUROLOGICALLY: The exam is nonfocal. LABORATORY DATA: White blood cell count 18.2, hemoglobin 13.2, hematocrit is 38.8, platelet count is 409. Sodium 137, potassium 3.6, chloride is 95, CO2 is 28, BUN of 12, creatinine 0.53, glucose is 8 6. ASSESSMENT AND PLAN: This is a pleasant 62-year-old female that presents with increasing cough with sputum production as well as some chest discomfort. This likely represents a chronic obstructive pul monary disease exacerbation. Her chest x-ray showed a persistent right upper lobe opacification, thi s likely could be related to her small cell lung cancer, does not appear to have a new infiltrate. S he will be treated for the chronic obstructive pulmonary disease exacerbation with IV antibiotics, st eroids, DuoNeb and supplemental oxygen. She will also be placed on deep venous thrombosis and gastro intestinal prophylaxis. 1. Depression. We will continue her usual medications for her depression.
[2017-08-03] MEDS: Ondansetron HCl/PF 4 MG/2 ML Vial IVP PRN (07:41)
[2017-08-03] MEDS: HYDROcodone/Acetaminophen 5/325 mg Tablet PO PRN ×4 (07:41→21:14)
[2017-08-03] MEDS: Benzonatate 100 MG CAP PO PRN ×3 (07:54→16:52)
[2017-08-03] MEDS ORDERED: PROVENTIL INHALER 6.7 G (200 INHALATIONS) INH PRN (08:40)
[2017-08-03] MEDS ORDERED: Loratadine 10 MG TAB PO PRN (08:41)
[2017-08-03] MEDS ORDERED: Chloraseptic Spray 180 ml Bottle PO PRN (08:41)
[2017-08-03] MEDS ORDERED: Eucerin (Mineral Oil/Petrolatum,White) 30 gm Jar TOP PRN (08:41)
[2017-08-03] MEDS ORDERED: Sodium Chloride 0.65% Nasal 44 ML BOT EA NARE PRN (08:41)
[2017-08-03] MEDS ORDERED: Loperamide HCl 2 MG CAP PO PRN (08:41)
[2017-08-03] MEDS ORDERED: Artificial Tears 18 DROP/0.9 ML EA EYE PRN (08:41)
[2017-08-03] MEDS ORDERED: Ondansetron ODT 4 MG TAB PO PRN (08:41)
[2017-08-03] MEDS ORDERED: Temazepam 15 MG CAP PO PRN (08:41)
[2017-08-03] MEDS ORDERED: Famotidine 20 MG TAB PO SCH (09:00)
[2017-08-03] MEDS ORDERED: Enoxaparin Sodium 40 MG/0.4 ML SYRINGE SC SCH (09:00)
--- NOTE | 2017-08-03 11:35 | PDOC.PN ---
- Subjective Encounter Start Date: 08/03/17 Encounter Start Time: 08:40 -: old records requested/rev Patient seen and examined. No new complaints. No overnight events - Objective Resuscitation Status: Resuscitation Status FULL:Full Resuscitation MAR Reviewed: Yes Vital Signs & Weight: Vital Signs (12 hours) Temp Pulse Resp BP Pulse Ox 08/03/17 10:56 97.8 F 86 18 118/74 92 L 08/03/17 08:00 97.8 F 82 16 92 L 08/03/17 07:16 97.8 F 82 16 148/80 H 92 L 08/03/17 06:40 92 L 08/03/17 06:39 81 16 93 L 08/03/17 01:36 94 L 08/03/17 00:00 98.4 F 82 18 Weight Admit Weight 93 lb Weight 93 lb I&O: 08/02/17 08/03/17 08/04/17 06:59 06:59 06:59 Intake Total 500 240 Balance 500 240 Phys Exam - Physical Examination Constitutional: NAD HEENT: PERRLA, moist MMs, sclera anicteric Neck: no JVD, supple Respiratory: no wheezing, no rales, no rhonchi Cardiovascular: RRR, no significant murmur, no rub Gastrointestinal: soft, non-tender, no distention, positive bowel sounds Musculoskeletal: no edema, pulses present Neurological: non-focal, normal sensation, moves all 4 limbs Psychiatric: normal affect, A&O x 3 Skin: no rash, normal turgor Dx/Plan (1) COPD exacerbation Code(s): J44.1 - CHRONIC OBSTRUCTIVE PULMONARY DISEASE W (ACUTE) EXACERBATION Status: Acute (2) Anxiety and depression Code(s): F41.8 - OTHER SPECIFIED ANXIETY DISORDERS Status: Chronic (3) Chronic low back pain Code(s): M54.5 - LOW BACK PAIN; G89.29 - OTHER CHRONIC PAIN Status: Chronic (4) Hypertension Code(s): I10 - ESSENTIAL (PRIMARY) HYPERTENSION Status: Chronic (5) Protein-calorie malnutrition, moderate Code(s): E44.0 - MODERATE PROTEIN-CALORIE MALNUTRITION Status: Chronic (6) Small cell lung cancer Code(s): C34.90 - MALIGNANT NEOPLASM OF UNSP PART OF UNSP BRONCHUS OR LUNG Status: Chronic - Plan cont current plan of care, continue antibiotics, respiratory therapy * change solumedrol 20 mg iv q 8 hourly * add dulera * continue duoneb and levaquin * nutritional support * repeat labs tomorrow * medication reviewed as below * symptomatic treatment. Review of Systems - Review of Systems ENT: negative: Ear Pain, Ear Discharge, Nose Pain, Nose Discharge, Nose Congestion, Mouth Pain, Mouth Swelling, Throat Pain, Throat Swelling, Other Respiratory: negative: Cough, Dry, Shortness of Breath, Hemoptysis, SOB with Excertion, Pleuritic Pain, Sputum, Wheezing Cardiovascular: negative: chest pain, palpitations, orthopnea, paroxysmal nocturnal dyspnea, edema, light headedness, other Gastrointestinal: negative: Nausea, Vomiting, Abdominal Pain, Diarrhea, Constipation, Melena, Hematochezia, Other Genitourinary: negative: Dysuria, Frequency, Incontinence, Hematuria, Retention , Other Musculoskeletal: negative: Neck Pain, Shoulder Pain, Arm Pain, Back Pain, Hand Pain, Leg Pain, Foot Pain, Other Skin: negative: Rash, Lesions, Aayush, Bruising, Other - Medications/Allergies Allergies/Adverse Reactions: Allergies Allergy/AdvReac Type Severity Reaction Status Date / Time No Known Allergies Allergy Verified 08/03/17 00:11 Medications: Current Medications Acetaminophen (Tylenol) 650 mg PO Q4H PRN PRN Reason: Headache/Fever or Pain Hydrocodone Bitart/Acetaminophen ([place] 5/325) 1 tab PO Q4H PRN PRN Reason: Moderate Pain (4-6) Last Admin: 08/03/17 07:41 Dose: 1 tab Al Hydroxide/Mg Hydroxide (Maalox) 30 ml PO Q6H PRN PRN Reason: Heartburn or Indigestion Albuterol Sulfate (Proventil Hfa) 2 puff INH Q4H PRN PRN Reason: SOB &/or Wheezing Albuterol/Ipratropium (Duoneb) 3 ml NEB Q4H PRN PRN Reason: SOB &/or Wheezing Albuterol/Ipratropium (Duoneb) 3 ml NEB [id number] JEREMY Last Admin: 08/03/17 06:39 Dose: 3 ml Artificial Tears (Tears Naturale) 0 drop EA EYE PRN PRN PRN Reason: Dry Eyes Benzonatate (Tessalon) 100 mg PO Q4H PRN PRN Reason: Cough Last Admin: 08/03/17 07:54 Dose: 100 mg Docusate Sodium (Colace) 100 mg PO BIDPRN PRN PRN Reason: Constipation Enoxaparin Sodium (Lovenox) 40 mg SC 0900 [facility] Last Admin: 08/03/17 08:08 Dose: Not Given Guaifenesin (Robitussin Sf) 200 mg PO Q4H PRN PRN Reason: Cough Guaifenesin (Mucinex) 600 mg PO Q12HR JEREMY Hydralazine HCl (Apresoline) 10 mg SLOW IVP Q4H PRN PRN Reason: Systolic BP > 180 Levofloxacin 750 mg/ Device 150 mls @ 100 mls/hr IVPB Q24HR JEREMY Loperamide HCl (Imodium) 2 mg PO PRN PRN PRN Reason: Diarrhea/Loose Stools Loratadine (Claritin) 10 mg PO DAILYPRN PRN PRN Reason: Sinus Symptoms Magnesium Hydroxide (Milk Of Magnesium) 30 ml PO DAILYPRN PRN PRN Reason: Constipation Methylprednisolone Sodium Succinate (Solu-Medrol) 20 mg IVP 0200,1000,1800 [facility] Last Admin: 08/03/17 10:39 Dose: Not Given Mineral Oil/White Petrolatum (Eucerin Cream) 0 gm TOP BIDPRN PRN PRN Reason: Dry Skin Mometasone Furoate/Formoterol Fumar (Dulera 200 Mcg/5 Mcg Inhaler) 2 puff INH BID-RT JEREMY Ondansetron HCl (Zofran) 4 mg IVP Q6H PRN PRN Reason: Nausea/Vomiting Last Admin: 08/03/17 07:41 Dose: 4 mg Ondansetron HCl (Zofran Odt) 4 mg PO Q6H PRN PRN Reason: Nausea/Vomiting Pantoprazole Sodium (Protonix) 40 mg PO 2100 JEREMY Phenol (Chloraseptic [employer] 180 Ml Bot) 0 ml PO PRN PRN PRN Reason: Sore Throat Sertraline HCl (Zoloft) 100 mg PO HS JEREMY Sodium Chloride ([place] Nasal [employer] 0.65%) 0 ml EA NARE QIDPRN PRN PRN Reason: Nasal Congestion Temazepam (Restoril) 15 mg PO HSPRN PRN PRN Reason: Insomnia
[2017-08-03] MEDS: guaiFENesin ER 600 MG TAB PO SCH ×2 (11:44→21:11)
[2017-08-03] MEDS: Mometasone/Formoterol 120 PUFF INHALER INH SCH (19:43)
[2017-08-04] MEDS: HYDROcodone/Acetaminophen 5/325 mg Tablet PO PRN ×4 (04:51→20:36)
[2017-08-04 04:52] LABS: #Lymphocytes 0.5 thou/uL (1.20-3.40); #Monocytes 0.7 thou/uL (0.11-0.59); #Neutrophils 10.2 thou/uL (1.40-6.50); %Basophils 0.1 % (0.0-1.0); %Eosinophils 0.2 % (0.0-10.0); %Lymphocytes 4.4 % (21.0-51.0); %Monocytes 6.1 % (0.0-10.0); %Neutrophils 89.2 % (42.0-75.0); Hemoglobin 11.2 g/dL (12.0-16.0); Mean Corpuscular HGB CONC 32.7 g/dL (32.0-36.0); Mean Corpuscular Hemoglobin 34.6 pg (27.0-31.0); Mean Platelet Volume 5.9 fL (7.4-10.4); Platelet Count 396 thou/uL (130-400); RBC Distribution Width 12.9 % (11.5-14.5); Red Blood Cell (RBC) Count 3.25 mill/uL (4.20-5.40); White Blood Cell (WBC) Count 11.4 thou/uL (4.8-10.8)
[2017-08-04 05:16] LABS: ALT (SGPT) 17 U/L (8-55); AST (SGOT) 16 U/L (5-34); Albumin 2.5 g/dL (3.4-4.8); Alkaline Phosphatase 41 U/L (40-150); Bilirubin, Direct 0.4 mg/dL (0.1-0.3); Bilirubin, Total 0.6 mg/dL (0.2-1.2); Protein, Total 5.7 g/dL (6.0-8.3)
[2017-08-04 05:17] LABS: Calcium 8.6 mg/dL (7.8-10.44); Chloride 92 mmol/L (98-107); Potassium 3.8 mmol/L (3.5-5.1); Sodium 127 mmol/L (136-145)
[2017-08-04 05:18] LABS: Glucose 106 mg/dL (80-115)
[2017-08-04 05:19] LABS: Carbon Dioxide 29 mmol/L (23-31)
[2017-08-04 05:21] LABS: Calc. Creatinine Clearance 80 mL/min (70-130); Estimated GFR-MDRD Greater than 90
[2017-08-04 05:22] LABS: BUN (Urea Nitrogen) 9 mg/dL (9.8-20.1)
[2017-08-04 05:34] LABS: Anion Gap 11 mmol/L (10-20)
[2017-08-04] MEDS: Diabetic Tussin 200 MG/10 ML UDCUP PO PRN ×2 (07:05→20:36)
[2017-08-04] MEDS: Ondansetron HCl/PF 4 MG/2 ML Vial IVP PRN (07:05)
[2017-08-04] MEDS: Cyanocobalamin (Vitamin B-12) 1,000 MCG TAB PO SCH (07:46)
[2017-08-04] MEDS: Multivitamin W/ Minerals 1 TAB PO SCH (07:46)
[2017-08-04] MEDS: guaiFENesin ER 600 MG TAB PO SCH ×2 (07:47→20:36)
[2017-08-04] MEDS: Folic Acid 1 MG TAB PO SCH (07:47)
[2017-08-04] MEDS: Enoxaparin Sodium 30 MG/0.3 ML SYRINGE SC SCH (07:47)
[2017-08-04] MEDS: Mometasone/Formoterol 120 PUFF INHALER INH SCH ×2 (09:20→19:26)
--- NOTE | 2017-08-04 09:20 | PDOC.PN ---
- Subjective Encounter Start Date: 08/04/17 Encounter Start Time: 08:30 Patient seen and examined. No new complaints. No overnight events - Objective Resuscitation Status: Resuscitation Status FULL:Full Resuscitation MAR Reviewed: Yes Vital Signs & Weight: Vital Signs (12 hours) Temp Pulse Resp BP Pulse Ox 08/04/17 09:13 93 L 08/04/17 09:11 69 16 08/04/17 07:51 99.3 F 69 16 93 L 08/04/17 07:26 99.3 F 69 16 109/72 93 L 08/03/17 23:40 94 L Weight Admit Weight 93 lb Weight 93 lb I&O: 08/03/17 08/04/17 08/05/17 06:59 06:59 06:59 Intake Total 500 240 Balance 500 240 Result Diagrams: 08/04/17 04:15 08/04/17 04:15 Phys Exam - Physical Examination Constitutional: NAD HEENT: PERRLA, moist MMs, sclera anicteric Neck: no JVD, supple Respiratory: no wheezing, no rales, no rhonchi Cardiovascular: RRR, no significant murmur, no rub Gastrointestinal: soft, non-tender, no distention, positive bowel sounds Musculoskeletal: no edema, pulses present Neurological: non-focal, normal sensation, moves all 4 limbs Lymphatic: no nodes Psychiatric: normal affect, A&O x 3 Skin: no rash, normal turgor Dx/Plan (1) COPD exacerbation Code(s): J44.1 - CHRONIC OBSTRUCTIVE PULMONARY DISEASE W (ACUTE) EXACERBATION Status: Acute (2) Anxiety and depression Code(s): F41.8 - OTHER SPECIFIED ANXIETY DISORDERS Status: Chronic (3) Chronic low back pain Code(s): M54.5 - LOW BACK PAIN; G89.29 - OTHER CHRONIC PAIN Status: Chronic (4) Hypertension Code(s): I10 - ESSENTIAL (PRIMARY) HYPERTENSION Status: Chronic (5) Protein-calorie malnutrition, moderate Code(s): E44.0 - MODERATE PROTEIN-CALORIE MALNUTRITION Status: Chronic (6) Small cell lung cancer Code(s): C34.90 - MALIGNANT NEOPLASM OF UNSP PART OF UNSP BRONCHUS OR LUNG Status: Chronic - Plan cont current plan of care, continue antibiotics, respiratory therapy * continue current optimum medical care for copd * she needs more time to recover to baseline * medication reviewed as below * symptomatic treatment. Review of Systems - Review of Systems ENT: negative: Ear Pain, Ear Discharge, Nose Pain, Nose Discharge, Nose Congestion, Mouth Pain, Mouth Swelling, Throat Pain, Throat Swelling, Other Respiratory: negative: Cough, Dry, Shortness of Breath, Hemoptysis, SOB with Excertion, Pleuritic Pain, Sputum, Wheezing Cardiovascular: negative: chest pain, palpitations, orthopnea, paroxysmal nocturnal dyspnea, edema, light headedness, other Gastrointestinal: negative: Nausea, Vomiting, Abdominal Pain, Diarrhea, Constipation, Melena, Hematochezia, Other Genitourinary: negative: Dysuria, Frequency, Incontinence, Hematuria, Retention , Other Musculoskeletal: negative: Neck Pain, Shoulder Pain, Arm Pain, Back Pain, Hand Pain, Leg Pain, Foot Pain, Other Skin: negative: Rash, Lesions, Aayush, Bruising, Other - Medications/Allergies Allergies/Adverse Reactions: Allergies Allergy/AdvReac Type Severity Reaction Status Date / Time No Known Allergies Allergy Verified 08/03/17 00:11 Medications: Current Medications Acetaminophen (Tylenol) 650 mg PO Q4H PRN PRN Reason: Headache/Fever or Pain Hydrocodone Bitart/Acetaminophen ([place] 5/325) 1 tab PO Q4H PRN PRN Reason: Moderate Pain (4-6) Last Admin: 08/04/17 04:51 Dose: 1 tab Al Hydroxide/Mg Hydroxide (Maalox) 30 ml PO Q6H PRN PRN Reason: Heartburn or Indigestion Albuterol Sulfate (Proventil Hfa) 2 puff INH Q4H PRN PRN Reason: SOB &/or Wheezing Albuterol/Ipratropium (Duoneb) 3 ml NEB Q4H PRN PRN Reason: SOB &/or Wheezing Albuterol/Ipratropium (Duoneb) 3 ml NEB [id number] [facility] Last Admin: 08/04/17 09:11 Dose: 3 ml Artificial Tears (Tears Naturale) 0 drop EA EYE PRN PRN PRN Reason: Dry Eyes Benzonatate (Tessalon) 100 mg PO Q4H PRN PRN Reason: Cough Last Admin: 08/03/17 16:52 Dose: 100 mg Cyanocobalamin (Vitamin B-12) 1,000 mcg PO DAILY [facility] Last Admin: 08/04/17 07:46 Dose: 1,000 mcg Docusate Sodium (Colace) 100 mg PO BIDPRN PRN PRN Reason: Constipation Enoxaparin Sodium (Lovenox) 30 mg SC 0900 [facility] Last Admin: 08/04/17 07:47 Dose: Not Given Folic Acid (Folvite) 1 mg PO DAILY [facility] Last Admin: 08/04/17 07:47 Dose: 1 mg Guaifenesin (Robitussin Sf) 200 mg PO Q4H PRN PRN Reason: Cough Last Admin: 08/04/17 07:05 Dose: 200 mg Guaifenesin (Mucinex) 600 mg PO Q12HR [facility] Last Admin: 08/04/17 07:47 Dose: 600 mg Hydralazine HCl (Apresoline) 10 mg SLOW IVP Q4H PRN PRN Reason: Systolic BP > 180 Levofloxacin 750 mg/ Device 150 mls @ 100 mls/hr IVPB Q24HR [facility] Last Admin: 08/03/17 16:48 Dose: 150 mls Iron/Minerals/Multivitamins (Theragran M) 1 tab PO DAILY [facility] Last Admin: 08/04/17 07:46 Dose: 1 tab Loperamide HCl (Imodium) 2 mg PO PRN PRN PRN Reason: Diarrhea/Loose Stools Loratadine (Claritin) 10 mg PO DAILYPRN PRN PRN Reason: Sinus Symptoms Magnesium Hydroxide (Milk Of Magnesium) 30 ml PO DAILYPRN PRN PRN Reason: Constipation Methylprednisolone Sodium Succinate (Solu-Medrol) 20 mg IVP 0200,1000,1800 [facility] Last Admin: 08/04/17 02:52 Dose: 20 mg Mineral Oil/White Petrolatum (Eucerin Cream) 0 gm TOP BIDPRN PRN PRN Reason: Dry Skin Mometasone Furoate/Formoterol Fumar (Dulera 200 Mcg/5 Mcg Inhaler) 2 puff INH BID-RT [facility] Last Admin: 08/04/17 09:20 Dose: 2 puff Ondansetron HCl (Zofran) 4 mg IVP Q6H PRN PRN Reason: Nausea/Vomiting Last Admin: 08/04/17 07:05 Dose: 4 mg Ondansetron HCl (Zofran Odt) 4 mg PO Q6H PRN PRN Reason: Nausea/Vomiting Pantoprazole Sodium (Protonix) 40 mg PO 2100 [facility] Last Admin: 08/03/17 21:11 Dose: 40 mg Phenol (Chloraseptic [place] 180 Ml Bot) 0 ml PO PRN PRN PRN Reason: Sore Throat Sertraline HCl (Zoloft) 100 mg PO HS [facility] Last Admin: 08/03/17 21:11 Dose: 100 mg Sodium Chloride ([place] Nasal [place] 0.65%) 0 ml EA NARE QIDPRN PRN PRN Reason: Nasal Congestion Temazepam (Restoril) 15 mg PO HSPRN PRN PRN Reason: Insomnia
[2017-08-04] MEDS: Benzonatate 100 MG CAP PO PRN (11:03)
[2017-08-05] MEDS: HYDROcodone/Acetaminophen 5/325 mg Tablet PO PRN ×2 (02:02→08:19)
[2017-08-05] MEDS: Multivitamin W/ Minerals 1 TAB PO SCH (08:16)
[2017-08-05] MEDS: Cyanocobalamin (Vitamin B-12) 1,000 MCG TAB PO SCH (08:16)
[2017-08-05] MEDS: Enoxaparin Sodium 30 MG/0.3 ML SYRINGE SC SCH (08:16)
[2017-08-05] MEDS: Folic Acid 1 MG TAB PO SCH (08:17)
[2017-08-05] MEDS: guaiFENesin ER 600 MG TAB PO SCH (08:17)
[2017-08-05] MEDS: Benzonatate 100 MG CAP PO PRN (08:18)
[2017-08-05] MEDS: Mometasone/Formoterol 120 PUFF INHALER INH SCH (08:57)
--- NOTE | 2017-08-05 09:22 | DIS ---
DATE OF ADMISSION: 08/02/2017 DATE OF DISCHARGE: 08/05/2017 PRIMARY CARE PHYSICIAN: Nemo Chen M.D. DISCHARGE DISPOSITION: Home. PRIMARY DISCHARGE DIAGNOSES: Chronic obstructive pulmonary disease exacerbation, hyponatremia. SECONDARY DISCHARGE DIAGNOSES: Small cell lung cancer, protein calorie malnutrition, moderate macroc ytic anemia, hypertension, chronic low back pain, anxiety, and depression, chronic obstructive pulmon pierre disease. PRIMARY PROCEDURE/OPERATION: None. RADIOLOGICAL INVESTIGATION: Chest x-ray was normal. SIGNIFICANT LABORATORY DATA: WBC 11.4, hemoglobin 11.2, platelets 396 with macrocytosis. Sodium 127 , potassium 3.8, BUN 9, creatinine 0.48, AST 16, ALT 17, and alkaline phosphatase 41. DISCHARGE MEDICATIONS: ProAir HFA 2 puffs inhalation q.4 hourly p.r.n., Tessalon 100 mg p.o. q.4 ever rly p.r.n., vitamin B12 1000 mcg p.o. daily, folic acid 1 mg p.o. daily, Mucinex 600 mg p.o. b.i.d. f or 5 days, DuoNeb q.6 hourly, Levaquin 500 mg p.o. daily for 5 days, Dulera two puffs inhalation b.i. d., Protonix 40 mg p.o. daily, prednisone 20 mg p.o. daily for 5 days, then 10 mg p.o. daily for 5 da ys, then 5 mg p.o. daily for 5 days, Zoloft 100 mg p.o. at bedtime. CONTRAINDICATIONS: None. CODE STATUS: FULL CODE. INPATIENT COLUMN PRECASTER: None. ALLERGIES: No known drug allergy. DISCHARGE PLAN: Post hospital, patient will follow up with primary care physician in 1 week. HOSPITAL COURSE: A 62-year-old female with the above mentioned medical problem who was admitted by Nicholas Roy. Please see her H&P for further details. The patient was admitted for increasing shortnes s of breath, cough. Her recent flu test was negative. This patient's chest x-ray was unremarkable. She was admitted for COPD exacerbation. She also has hyponatremia from small cell lung cancer from [facility] and she has moderate protein calorie malnutrition. While in hospital, we treated her empirical ly with antibiotic therapy, respiratory therapy with significant clinical improvement. By the time o f discharge, she was not using any accessory muscles of respiration. She was on room air. She was b ack to baseline. Upon discharge, we prescribed tapering doses of prednisone and also prescribed Dule ra inhaler. Empiric antibiotic therapy for 5 more days is given. Rest of medications will be contin ued as per previous. The patient is seen and examined at bedside today. I reviewed all review of systems with her and neg ative. PHYSICAL EXAMINATION: VITAL SIGNS: Currently, temperature 98.2, pulse 87, respiratory rate 16, saturation 96% on room air, blood pressure 132/76, weight 93 pounds. GENERAL: The patient is currently alert, awake, appears in mild emaciated. HEAD: Normocephalic, atraumatic. EYES: Pupils round, reactive to light. Extraocular muscles intact. ENT: Oropharynx within normal limits. Moist mucous membranes. No oral lesions. No pharyngeal eryt malcom, no exudates. NECK: Supple, no JVD, no thyromegaly, no carotid bruit. LUNGS: Without any rhonchi and no rales. CARDIAC: S1, S2 regular. No murmur. ABDOMEN: Soft and benign without any tenderness. EXTREMITIES: No edema. NEUROLOGIC: Nonfocal examination. All new medication prescription given to her pharmacy. The patient is medically stable for discharge today.
--- NOTE | 2017-08-05 10:15 | PDOC.PN ---
- Subjective Encounter Start Date: 08/05/17 Encounter Start Time: 08:10 Patient seen and examined. No new complaints. No overnight events - Objective Resuscitation Status: Resuscitation Status FULL:Full Resuscitation MAR Reviewed: Yes Vital Signs & Weight: Vital Signs (12 hours) Temp Pulse Resp BP Pulse Ox 08/05/17 08:57 86 12 08/05/17 08:51 96 08/05/17 08:50 86 12 08/05/17 08:06 98.2 F 87 16 132/76 96 08/05/17 08:00 98.2 F 87 16 96 08/05/17 04:46 97 08/05/17 00:06 81 18 97 Weight Admit Weight 93 lb Weight 93 lb I&O: 08/04/17 08/05/17 08/06/17 06:59 06:59 06:59 Intake Total 240 1250 240 Balance 240 1250 240 Result Diagrams: 08/04/17 04:15 08/04/17 04:15 Phys Exam - Physical Examination Constitutional: NAD HEENT: PERRLA, moist MMs, sclera anicteric Neck: no JVD, supple Respiratory: no wheezing, no rales, no rhonchi Cardiovascular: RRR, no significant murmur, no rub Gastrointestinal: soft, non-tender, no distention, positive bowel sounds Musculoskeletal: no edema, pulses present Neurological: non-focal, normal sensation Psychiatric: normal affect, A&O x 3 Skin: no rash, normal turgor Dx/Plan (1) COPD exacerbation Code(s): J44.1 - CHRONIC OBSTRUCTIVE PULMONARY DISEASE W (ACUTE) EXACERBATION Status: Acute (2) Anxiety and depression Code(s): F41.8 - OTHER SPECIFIED ANXIETY DISORDERS Status: Chronic (3) Chronic low back pain Code(s): M54.5 - LOW BACK PAIN; G89.29 - OTHER CHRONIC PAIN Status: Chronic (4) Hypertension Code(s): I10 - ESSENTIAL (PRIMARY) HYPERTENSION Status: Chronic (5) Protein-calorie malnutrition, moderate Code(s): E44.0 - MODERATE PROTEIN-CALORIE MALNUTRITION Status: Chronic (6) Small cell lung cancer Code(s): C34.90 - MALIGNANT NEOPLASM OF UNSP PART OF UNSP BRONCHUS OR LUNG Status: Chronic - Plan cont current plan of care * medication reviewed as below * symptomatic treatment * see discharge summery. Review of Systems - Review of Systems ENT: negative: Ear Pain, Ear Discharge, Nose Pain, Nose Discharge, Nose Congestion, Mouth Pain, Mouth Swelling, Throat Pain, Throat Swelling, Other Respiratory: negative: Cough, Dry, Shortness of Breath, Hemoptysis, SOB with Excertion, Pleuritic Pain, Sputum, Wheezing Cardiovascular: negative: chest pain, palpitations, orthopnea, paroxysmal nocturnal dyspnea, edema, light headedness, other Gastrointestinal: negative: Nausea, Vomiting, Abdominal Pain, Diarrhea, Constipation, Melena, Hematochezia, Other Genitourinary: negative: Dysuria, Frequency, Incontinence, Hematuria, Retention , Other Musculoskeletal: negative: Neck Pain, Shoulder Pain, Arm Pain, Back Pain, Hand Pain, Leg Pain, Foot Pain, Other Skin: negative: Rash, Lesions, Aayush, Bruising, Other - Medications/Allergies Allergies/Adverse Reactions: Allergies Allergy/AdvReac Type Severity Reaction Status Date / Time No Known Allergies Allergy Verified 08/03/17 00:11 Medications: Current Medications Acetaminophen (Tylenol) 650 mg PO Q4H PRN PRN Reason: Headache/Fever or Pain Hydrocodone Bitart/Acetaminophen ([place] 5/325) 1 tab PO Q4H PRN PRN Reason: Moderate Pain (4-6) Last Admin: 08/05/17 08:19 Dose: 1 tab Al Hydroxide/Mg Hydroxide (Maalox) 30 ml PO Q6H PRN PRN Reason: Heartburn or Indigestion Albuterol Sulfate (Proventil Hfa) 2 puff INH Q4H PRN PRN Reason: SOB &/or Wheezing Albuterol/Ipratropium (Duoneb) 3 ml NEB Q4H PRN PRN Reason: SOB &/or Wheezing Albuterol/Ipratropium (Duoneb) 3 ml NEB Q2AA-SH [facility] Last Admin: 08/05/17 08:50 Dose: 3 ml Artificial Tears (Tears Naturale) 0 drop EA EYE PRN PRN PRN Reason: Dry Eyes Benzonatate (Tessalon) 100 mg PO Q4H PRN PRN Reason: Cough Last Admin: 08/05/17 08:18 Dose: 100 mg Cyanocobalamin (Vitamin B-12) 1,000 mcg PO DAILY [facility] Last Admin: 08/05/17 08:16 Dose: 1,000 mcg Docusate Sodium (Colace) 100 mg PO BIDPRN PRN PRN Reason: Constipation Enoxaparin Sodium (Lovenox) 30 mg SC 0900 [facility] Last Admin: 08/05/17 08:16 Dose: 30 mg Folic Acid (Folvite) 1 mg PO DAILY [facility] Last Admin: 08/05/17 08:17 Dose: 1 mg Guaifenesin (Robitussin Sf) 200 mg PO Q4H PRN PRN Reason: Cough Last Admin: 08/04/17 20:36 Dose: 200 mg Guaifenesin (Mucinex) 600 mg PO Q12HR [facility] Last Admin: 08/05/17 08:17 Dose: 600 mg Hydralazine HCl (Apresoline) 10 mg SLOW IVP Q4H PRN PRN Reason: Systolic BP > 180 Levofloxacin 750 mg/ Device 150 mls @ 100 mls/hr IVPB Q24HR [facility] Last Admin: 08/04/17 16:56 Dose: 150 mls Iron/Minerals/Multivitamins (Theragran M) 1 tab PO DAILY [facility] Last Admin: 08/05/17 08:16 Dose: 1 tab Loperamide HCl (Imodium) 2 mg PO PRN PRN PRN Reason: Diarrhea/Loose Stools Loratadine (Claritin) 10 mg PO DAILYPRN PRN PRN Reason: Sinus Symptoms Magnesium Hydroxide (Milk Of Magnesium) 30 ml PO DAILYPRN PRN PRN Reason: Constipation Methylprednisolone Sodium Succinate (Solu-Medrol) 20 mg IVP 0200,1000,1800 [facility] Last Admin: 08/05/17 02:01 Dose: 20 mg Mineral Oil/White Petrolatum (Eucerin Cream) 0 gm TOP BIDPRN PRN PRN Reason: Dry Skin Mometasone Furoate/Formoterol Fumar (Dulera 200 Mcg/5 Mcg Inhaler) 2 puff INH BID-RT [facility] Last Admin: 08/05/17 08:57 Dose: 2 puff Ondansetron HCl (Zofran) 4 mg IVP Q6H PRN PRN Reason: Nausea/Vomiting Last Admin: 08/04/17 07:05 Dose: 4 mg Ondansetron HCl (Zofran Odt) 4 mg PO Q6H PRN PRN Reason: Nausea/Vomiting Pantoprazole Sodium (Protonix) 40 mg PO 2100 [facility] Last Admin: 08/04/17 20:36 Dose: 40 mg Phenol (Chloraseptic [place] 180 Ml Bot) 0 ml PO PRN PRN PRN Reason: Sore Throat Sertraline HCl (Zoloft) 100 mg PO HS [facility] Last Admin: 08/04/17 20:36 Dose: 100 mg Sodium Chloride ([place] Nasal [place] 0.65%) 0 ml EA NARE QIDPRN PRN PRN Reason: Nasal Congestion Temazepam (Restoril) 15 mg PO HSPRN PRN PRN Reason: Insomnia
[2017-08-05] MEDS: Diabetic Tussin 200 MG/10 ML UDCUP PO PRN (10:38)
[2017-08-05 11:27] VITALS: BP 136/81; TEMP 97.6
== END 2017-08-05 12:01 | disposition home or self-care (01) | DRG 191 ==
LOC: ERS 19:20 → T4-A 20:07
PROVIDERS: ADMIT Internal Medicine; ATTEND Internal Medicine
DX: J44.1 Chronic obstructive pulmonary disease with (acute) exacerbation (principal); E22.2 Syndrome of inappropriate secretion of antidiuretic hormone; E44.0 Moderate protein-calorie malnutrition; J96.10 Chronic respiratory failure, unspecified whether with hypoxia or hypercapnia; Z68.1 Body mass index [BMI] 19.9 or less, adult; I10 Essential (primary) hypertension; G89.29 Other chronic pain; M54.5 Low back pain; F41.9 Anxiety disorder, unspecified; F32.9 Major depressive disorder, single episode, unspecified; Z85.118 Personal history of other malignant neoplasm of bronchus and lung; Z87.891 Personal history of nicotine dependence; Z79.899 Other long term (current) drug therapy
CPT/HCPCS: 36415; 80048; 80076; 85025; 94640; 94664; 94760; J1650; J1956; J2405; J2920; J7611; J7620

== ENCOUNTER 2017-08-27 12:45 | Outpatient (CLI) | payer OTHER ==
[2017-08-27 13:22] LABS: Calc. Creatinine Clearance 0 mL/min (70-130); Estimated GFR-MDRD Greater than 90
[2017-08-27] MEDS ORDERED: Iopamidol 370 76% 100 ML VIAL ONE (13:43)
--- NOTE | 2017-08-27 16:42 | CT ---
CT THORAX WITH CONTRAST: DATE: 08/27/17. HISTORY: A 62-year-old female with right upper lobe lung cancer. Status post chemotherapy and radiation thera py. Followup. COMPARISON: 05/09/17, 10/16/16. TECHNIQUE: IV iodinated contrast media: 100 mL of Isovue 370. FINDINGS: No major interval change in the consolidation of much of the right upper lobe, especially the apex, w ith soft tissue density material contiguously extending into the right hilum, surrounding the entire right mainstem bronchus, and into the mediastinum, without discrete borders in the hilum or in the me diastinum. The apical consolidation circumferentially abuts all right apical pleural surfaces. It c ontains an approximately 3 x 2.5 x 4 cm cavitation. This is associated with volume loss such that th ere is superior retraction of the right hilum. The consolidated portion contains air bronchogram wit h cicatrization bronchiectasis. This appearance of the right apical consolidation with cavitation, a nd the soft tissue material in the mediastinum and right hilum, have not significantly changed since 05/09/17. The volume of the consolidated portion of the lung is slightly greater than it was on 10/16. The large cavity within it is different in shape now compared to 10/16/16, and slightly larger. The right hilar and mediastinal soft tissue density material appears similar to 10/16/16. There is a flat, somewhat thin rind of pleural-based soft tissue density material at the posterior me dial aspect of the superior segment of the right lower lobe which is thicker than it was on 05/09/17. There is no pleural effusion. The approximately 1.5 x 1 x 0.5 cm stellate lesion at the posterior segment of the left upper lobe is unchanged since 05/17/16, and is therefore probably a benign scar. There is an approximately 0.5 x 0.5 x 0.5 cm noncalcified pulmonary nodule located in the posterior a spect of the left lower lobe near the posterior pleural surface (axial image 45 of 68, series 3; lulú nal image 93 of 112, series 601) is stable compared to 09/09/16 and 10/16/16. There are a few addition al scattered irregularly shaped noncalcified pulmonary nodules elsewhere in the basilar segments of t he left lower lobe, which are all new since 05/09/17. No adrenal mass. No pleural effusion or pneumothorax. No cardiomegaly or pericardial effusion. Ath erosclerotic calcification of thoracic aorta. No focal destructive osseous lesion. IMPRESSION: 1. Apical cavitary lesion in the right upper lobe, contiguous with soft tissue thickening of right h ilum and mediastinum, unchanged since 05/09/17. 2. In addition to a benign 0.5 cm noncalcified left lower lobe pulmonary nodule that has been stable since 10/16/16, there are now new additional nonspecific tiny basilar left lower pulmonary nodules, f or which followup is recommended. AUDRA Tobar POS: [facility]
== END 2017-08-27 12:46 | disposition home or self-care (01) ==
LOC: CT 12:45
PROVIDERS: ATTEND Internal Medicine Hematology & Oncology
DX: C34.90 Malignant neoplasm of unspecified part of unspecified bronchus or lung (principal); R91.8 Other nonspecific abnormal finding of lung field
CPT/HCPCS: 36415; 71260; 82565

== ENCOUNTER 2017-12-04 09:02 | Outpatient (CLI) | payer OTHER ==
[2017-12-04 09:35] LABS: Estimated GFR-MDRD - POC Greater than 90
[2017-12-04] MEDS ORDERED: ISOVUE-370 76%-LOCM 1 ML ONE (12:34)
== END 2017-12-04 09:03 | disposition home or self-care (01) ==
LOC: BICCT 09:02
PROVIDERS: ATTEND Internal Medicine Hematology & Oncology
DX: C34.90 Malignant neoplasm of unspecified part of unspecified bronchus or lung (principal); J44.9 Chronic obstructive pulmonary disease, unspecified; I70.90 Unspecified atherosclerosis
CPT/HCPCS: 71260; 82565

== ENCOUNTER 2018-04-17 10:17 | Outpatient (CLI) | payer OTHER ==
--- NOTE | 2018-04-17 11:41 | CT ---
CT CHEST NONCONTRAST: HISTORY: Lung nodules. Lung cancer. Followup. COMPARISON: Multiple exams, back through 10/16/2016. FINDINGS: Extensive scarring, cavitation, and parenchymal opacity at the right apex is unchanged in appearance from the prior exam, extending to the right suprahilar level. Adjacent atelectasis at the major fiss ure has increased slightly. The left lung shows compensatory hyperinflation. Small, spiculated, cav itary lesion at the left apex is again demonstrated. On the axial images, the soft tissue component appears slightly greater than on the prior study, although it is less prominent on the coronal images , compared to previous exams. The 0.5 cm noncalcified nodule at the posterior left base, approaching the pleura, is stable. No new nodules. Mild bibasilar atelectasis. Lack of contrast limits evaluation of the soft tissues. Prominent arterial calcification is again de monstrated. IMPRESSION: 1. Extensive post radiation changes of the right upper lobe with slight progression of adjacent atel ectasis. 2. Nodules in the left upper and lower lobes are overall stable. 3. Chronic obstructive pulmonary disease. 4. Atherosclerosis. POS: [facility]
== END 2018-04-17 10:18 | disposition home or self-care (01) ==
LOC: BICCT 10:17
PROVIDERS: ATTEND Internal Medicine Critical Care Medicine
DX: R91.1 Solitary pulmonary nodule (principal); J44.9 Chronic obstructive pulmonary disease, unspecified; R91.8 Other nonspecific abnormal finding of lung field; J98.11 Atelectasis; Z92.3 Personal history of irradiation
CPT/HCPCS: 71250

== ENCOUNTER 2018-08-26 10:46 | Day surgery (SDC) | payer OTHER ==
[2018-08-26] MEDS ORDERED: CEFAZOLIN 2 GM/50 ML BAG ONE (11:01)
[2018-08-26] MEDS ORDERED: Fentanyl 100 MCG/2 ML VIAL ONE ×2 (11:53→14:27)
[2018-08-26] MEDS ORDERED: Midazolam HCl 2 mg/2 ml Vial ONE ×2 (11:53→14:10)
[2018-08-26] MEDS ORDERED: KETAMINE 100 MG/ML (5ML VIAL) ONE (13:56)
[2018-08-26] MEDS ORDERED: Bupivacaine PF 0.5% 30 ML VIAL ONE (15:06)
[2018-08-26] MEDS ORDERED: Bupivacaine HCl 0.5%/Epinephrine 1:200,000/PF 30 ml Vial ONE (15:11)
[2018-08-26] MEDS ORDERED: Ondansetron PF 4 MG/2 ML Vial ONE (15:29)
--- NOTE | 2018-08-26 17:32 | RAD ---
INTRAOPERATIVE FLUOROSCOPY: HISTORY: Injury. ORIF right wrist. EXPOSURE: 15.5 seconds 0.27 mGy FINDINGS: Three intraoperative fluoroscopic views demonstrate placement of a metallic fusion plate traversing t he distal radius. Alignment is near anatomic. IMPRESSION: Fluoroscopy, as above. POS: [facility]
--- NOTE | 2018-08-27 13:11 | OP ---
DATE OF PROCEDURE: 08/26/2018 PREOPERATIVE DIAGNOSIS: Subacute right distal radius fracture (greater than 3 fragments). POSTOPERATIVE DIAGNOSIS: Subacute right distal radius fracture (greater than 3 fragments). PROCEDURE PERFORMED: Open reduction and internal fixation of right distal radius. ANESTHESIA: Axillary block and ketamine. TOURNIQUET TIME: 31 minutes at 250 mmHg. ACID LEVELER: Billy. IMPLANTS: Synthes 2.4 mm variable angle LCP 2-column plate 6 x 3. COMPLICATIONS: None. DRAINS: None. SPECIMEN: None. OUTCOME: Satisfactory. INDICATIONS FOR PROCEDURE: The patient is a 63-year-old lady who is now three weeks post fall on her outstretched wrist, sustaining a distal radius fracture. She had delay in presenting to our office due to medical illnesses. The patient was found to have approximately 55 degrees of dorsal angulation and a significant shortening of the distal radius. After discussion with the patient including risks and benefits, we decided to proceed with an attempted osteoclasis and open reduction and internal fixation. Informed consent has been obtained, I believe all questions answered. DESCRIPTION OF PROCEDURE: The patient was brought to the operating room and a time-out performed followed by induction of general anesthesia. Next, the patient was positioned supine on the OR table with the right upper extremity on an armboard. A sterile prep and drape was then performed of the right upper extremity. The limb was then exsanguinated with Esmarch bandage, tourniquet inflated to 250 mmHg. A volar radial skin incision was made in the interval between the flexor carpi radialis and brachioradialis was exploited. The neurovascular bundle was identified and reflected radially and then the pronator quadratus was reflected off the radial border of the radius and reflected the midline showing the underlying fracture. The fracture was not healed, but certainly was adhered to the soft tissue and significantly shortened. Subperiosteal dissection was then performed and the fracture was able to be reduced, although not anatomically at least brought out to a neutral length with christian of radial inclination and approximately neutral tilt on the lateral view. Her bone was found to be very osteopenic. Once positioned, a plate was applied to the volar cortex of the distal radius. This was 1st held in place with a 2.7 mm cortical screw in the longitudinal limb of the plate and then 2.4 mm locking screws placed in the horizontal limb. The plate was found to be just slightly more distal position than ideal. However, this was necessary due to the fracture configuration in hopes of getting any type of fixation of the distal fragment. Two additional 2.7 mm cortical screws were placed in the longitudinal limb of the plate. The wound was then irrigated with normal saline using bulb syringe, then closed in layers with 2-0 Vicryl followed by eladia for the skin. A Xeroform gauze, Webril, and fiberglass splint were applied to the arm. Tourniquet was let down and the patient was transferred to recovery room in stable condition. There were no complications. The patient tolerated the procedure well. Job ID: [id number]
== END 2018-08-26 17:40 | disposition home or self-care (01) ==
LOC: SDC 10:46
PROVIDERS: ATTEND Orthopaedic Surgery
PROC: 0PSH04Z Reposition Right Radius with Internal Fixation Device, Open Approach (ICD-10-PCS; principal; 2018-08-26)
DX: S52.531A Colles' fracture of right radius, initial encounter for closed fracture (principal); M85.80 Other specified disorders of bone density and structure, unspecified site; J44.9 Chronic obstructive pulmonary disease, unspecified; F31.9 Bipolar disorder, unspecified; I10 Essential (primary) hypertension; G89.29 Other chronic pain; M54.9 Dorsalgia, unspecified; F17.200 Nicotine dependence, unspecified, uncomplicated; Z79.899 Other long term (current) drug therapy; W19.XXXA Unspecified fall, initial encounter
CPT/HCPCS: 76000; 93005; 93010; 94640; C1713; J0670; J2250; J2405; J3010; J3490; J7620; S0020

== ENCOUNTER 2019-02-27 13:40 | Outpatient (CLI) | payer OTHER ==
[2019-02-27 14:52] LABS: Hemoglobin 10.6 g/dL (12.0-16.0); Mean Corpuscular HGB CONC 33.4 g/dL (32.0-36.0); Mean Corpuscular Hemoglobin 34.1 pg (27.0-31.0); Mean Platelet Volume 5.9 fL (7.4-10.4); Platelet Count 466 thou/uL (130-400); RBC Distribution Width 13.2 % (11.5-14.5); Red Blood Cell (RBC) Count 3.11 mill/uL (4.20-5.40); White Blood Cell (WBC) Count 12.4 thou/uL (4.8-10.8)
[2019-02-27 14:58] LABS: INR-International Normal Ratio 0.9; Prothrombin Time 12.3 SEC (12.0-14.7)
[2019-02-27 15:12] LABS: Anion Gap 14 mmol/L (10-20); BUN (Urea Nitrogen) 13 mg/dL (9.8-20.1); Calc. Creatinine Clearance 0 mL/min (70-130); Carbon Dioxide 25 mmol/L (23-31); Chloride 98 mmol/L (98-107); Estimated GFR-MDRD Greater than 90; Glucose 134 mg/dL (80-115); Potassium 3.5 mmol/L (3.5-5.1); Sodium 133 mmol/L (136-145)
--- NOTE | 2019-02-27 17:16 | RAD ---
2 VIEW CHEST: Date: 02/27/19 HISTORY: Preop. Dyspnea. Comparison made to an AP chest of 08/02/17. Comparison made to chest CT from 02/26/19. FINDINGS: Pleural thickening with cavitation of the right apical region again noted. Abnormal density and tract ion of the right suprahilar region is seen as described on yesterday's CT. Findings described as post -treatment change. Left lung appears clear. Nodules seen on CT are not well demonstrated on plain film. No evidence of i nfiltrate or vascular congestion. Heart size within normal range. There is a displaced comminuted fracture involving the left humeral head and neck. IMPRESSION: No acute change in the chest from yesterday's CT scan. POS: [facility]
--- NOTE | 2019-02-28 16:22 | EKG ---
Test Reason : Blood Pressure : / mmHG Vent. Rate : 086 BPM Atrial Rate : 086 BPM P-R Int : 168 ms QRS Dur : 078 ms QT Int : 412 ms P-R-T Axes : 075 063 077 degrees QTc Int : 493 ms Sinus rhythm with Possible Premature atrial complexes with Abberant conduction Nonspecific T wave abnormality Prolonged QT Abnormal ECG When compared with ECG of 26-AUG-2018 12:29, Abberant conduction is now Present Confirmed by LYNNETTE BAUM, SSydney ([id number]) on 02/28/2019 4:22:19 PM Referred By: MACIE Confirmed By:DR. Romero CHURCH MD
== END 2019-02-27 13:41 | disposition home or self-care (01) ==
LOC: LABBT 13:40
PROVIDERS: ATTEND Orthopaedic Surgery
DX: Z01.818 Encounter for other preprocedural examination (principal); S42.202A Unspecified fracture of upper end of left humerus, initial encounter for closed fracture
CPT/HCPCS: 71046; 80048; 85027; 85610; 93005; 93010

== ENCOUNTER 2019-03-07 05:20 | Day surgery (SDC) | payer OTHER ==
[2019-02-27 13:53] VITALS: BMI 17.8
[2019-03-07] MEDS ORDERED: ceFAZolin Sodium (SDC) 2 GM/100 ML BAG ONE (06:34)
[2019-03-07] MEDS ORDERED: Midazolam HCl 2 mg/2 ml Vial ONE (06:40)
[2019-03-07] MEDS ORDERED: Fentanyl 100 MCG/2 ML VIAL ONE (06:40)
--- NOTE | 2019-03-07 08:24 | RAD ---
CHEST 2 VIEWS: History Preop. COMPARISON: 02/27/2018. FINDINGS: Cardiac silhouette and pulmonary vasculature unremarkable. Lungs remain hyperinflated. Scarring, re traction, and cavitation at the right upper lobe is similar in appearance to prior chest radiograph. Compensatory hyperinflation of the left lung. Multiple nodules are partially visualized, better det elizabeth on recent CT exam. No pleural fluid or pneumothorax. Left shoulder fracture partially visuali zed. IMPRESSION: 1. Chronic findings of the chest are stable. 2. Left humeral neck fracture. POS: [facility]
--- NOTE | 2019-03-07 09:06 | CON ---
DATE OF CONSULTATION: 03/07/2019 SUBJECTIVE: Era Steven was evaluated by me today at the request of Orthopedic Surgery. Her surgery was canceled because of chest congestion. OBJECTIVE: VITAL SIGNS: Stable. She is in no distress, talking in complete sentences. She did have rhonchi bilaterally. HEART: Regular rhythm. ABDOMEN: Soft. EXTREMITIES: Without edema. DIAGNOSTIC DATA: Chest radiograph showed no alveolar infiltrate suggestive of pneumonia. IMPRESSION: 1. Lung cancer, clinically in remission. 2. Frequent falls. At some point in time, she probably needs a repeat MRI of her brain. She has not had one since 2017. 3. Bronchitis with chronic obstructive pulmonary disease with ongoing tobacco use. She wanted a prescription for the patch, but I have explained to her that they are [id number]. She is spending more money on cigarettes than the patch costs as I have explained to her. I did prescribe Bactrim DS b.i.d. to take for 10 days and prednisone 40 mg , 20mg for 4 days,10mg for 4 days. Job ID: [id number] MTDD
== END 2019-03-07 08:50 | disposition home or self-care (01) ==
LOC: SDC 05:20
PROVIDERS: ATTEND Orthopaedic Surgery
DX: S42.292A Other displaced fracture of upper end of left humerus, initial encounter for closed fracture (principal); C34.90 Malignant neoplasm of unspecified part of unspecified bronchus or lung; J44.9 Chronic obstructive pulmonary disease, unspecified; R29.6 Repeated falls; F31.9 Bipolar disorder, unspecified; F41.9 Anxiety disorder, unspecified; I10 Essential (primary) hypertension; M54.9 Dorsalgia, unspecified; G89.29 Other chronic pain; F17.210 Nicotine dependence, cigarettes, uncomplicated; Z53.8 Procedure and treatment not carried out for other reasons; Z79.51 Long term (current) use of inhaled steroids; Z79.899 Other long term (current) drug therapy; W19.XXXA Unspecified fall, initial encounter
CPT/HCPCS: 71046; J0690; J2250; J3010

== ENCOUNTER 2019-11-19 18:52 | Inpatient (IN) | payer MEDICARE, MEDICAID, OTHER ==
[~2019-11-19 18:52] MED LIST: Iopamidol 370 76% 100 ML VIAL ONE
[2019-11-19 19:54] LABS: #Lymphocytes 0.7 thou/uL (1.20-3.40); #Monocytes 0.7 thou/uL (0.11-0.59); #Neutrophils 9.2 thou/uL (1.40-6.50); %Basophils 0.1 % (0.0-1.0); %Eosinophils 0.3 % (0.0-10.0); %Lymphocytes 6.8 % (21.0-51.0); %Monocytes 6.4 % (0.0-10.0); %Neutrophils 86.5 % (42.0-75.0); Hemoglobin 11.4 g/dL (12.0-16.0); Mean Corpuscular HGB CONC 32.6 g/dL (32.0-36.0); Mean Corpuscular Hemoglobin 30.4 pg (27.0-31.0); Mean Corpuscular Volume 93.3 fL (78.0-98.0); Mean Platelet Volume 6.1 fL (7.4-10.4); Platelet Count 397 thou/uL (130-400); RBC Distribution Width 12.7 % (11.5-14.5); Red Blood Cell (RBC) Count 3.76 mill/uL (4.20-5.40); White Blood Cell (WBC) Count 10.6 thou/uL (4.8-10.8)
[2019-11-19 20:10] LABS: ALT (SGPT) Less than 7 U/L (8-55); AST (SGOT) 19 U/L (5-34); Albumin 2.6 g/dL (3.4-4.8); Alkaline Phosphatase 66 U/L (40-110); Anion Gap 11 mmol/L (10-20); BUN (Urea Nitrogen) 5 mg/dL (9.8-20.1); Bilirubin, Total 0.5 mg/dL (0.2-1.2); Calc. Creatinine Clearance 0 mL/min (70-130); Calcium 7.8 mg/dL (7.8-10.44); Carbon Dioxide 30 mmol/L (23-31); Chloride 95 mmol/L (98-107); Estimated GFR-MDRD Greater than 90; Globulin 3.3 g/dL (2.4-3.5); Glucose 113 mg/dL (80-115); Protein, Total 5.9 g/dL (6.0-8.3); Sodium 134 mmol/L (136-145)
[2019-11-19 20:31] LABS: Potassium 2.3 mmol/L (3.5-5.1)
--- NOTE | 2019-11-19 20:34 | RAD ---
PORTABLE CHEST: 11/19/19 HISTORY: Cough. There is also history of lung cancer in this patient. COMPARISON: Comparison made to prior exam of 03/07/[address] scan from 02/26/19. The previous chest films shows retraction and scarring and right suprahilar density. On today's exam, the right suprahilar density has increased. The lungs otherwise remain clear and unchanged. There is interstitial prominence and scarring which a ppears stable. The heart size remains normal. IMPRESSION: No acute infiltrate identified. The right suprahilar density appears more prominent than on prior exa m. Suggest follow-up with patient's oncologist and consider follow-up CT as indicated based on oncolo gy evaluation. POS: [facility]
[2019-11-19] MEDS ORDERED: Potassium Chloride 20 MEQ TAB ONE ×2 (20:35→20:37)
[2019-11-19] MEDS ORDERED: HYDROcodone/Acetaminophen 5/325 mg Tablet ONE (21:51)
[2019-11-19] MEDS ORDERED: cefTRIAXone\\ROCEPHIN 2 GM VIAL ONE (22:57)
[2019-11-19] MEDS ORDERED: Ipratropium Oral Inhaler INH PRN (23:13)
[2019-11-19] MEDS ORDERED: Albuterol 200 PUFF (6.7GM INHALER) INH PRN (23:23)
[2019-11-19 23:28] LABS: Bilirubin Negative (Negative); Blood, Urine Trace (Negative); Clarity Turbid (Clear); Glucose, Urine (Dipstick) Normal (Negative); Leukocyte 500 Leu/uL (Negative); Nitrite Negative (Negative); Protein, Urine (Dipstick) 30 mg/dL (Neg-Trace); RBC/HPF 0-3 HPF (0-3); Squamous Epithelial 0-3 HPF (0-3); Urobilinogen 3 mg/dL (Less than 2); WBC/HPF Greater than 50 HPF (0-3)
[2019-11-19 23:29] LABS: Bacteria/HPF 4+ HPF (None Seen)
[2019-11-19 23:53] LABS: Troponin I Less than 0.010 ng/mL (< 0.028)
--- NOTE | 2019-11-19 23:56 | HP ---
CHIEF COMPLAINT: "I'm feeling sick." HISTORY OF PRESENT ILLNESS: The patient is a 64-year-old female, with past medical history of lung cancer and COPD, who presented to the hospital with complaints of generalized weakness and fever for 4 days. Her symptoms were associated with nausea and vomiting in addition to shortness of breath, wheezing, and productive cough. In the ER, the patient was not in any respiratory distress and her vital signs were stable. Her laboratory studies were remarkable for hypokalemia and elevated D-dimer. CT angiogram of the chest was performed, which showed worsening lung cancer compared to prior studies in addition to some infiltrates suggesting possible infectious process. The patient stated that she is not currently receiving any treatment for her cancer due to her being in remission. PAST MEDICAL HISTORY: As noted above. PAST SURGICAL HISTORY: Left neck lymph node removal, appendectomy, hysterectomy, and brain tumor removal. SOCIAL HISTORY: The patient is a former cigarette smoker. She denies illicit drug use. She drinks alcohol socially. REVIEW OF SYSTEMS: Negative, except as noted in HPI. ALLERGIES: NO KNOWN DRUG ALLERGIES. PHYSICAL EXAMINATION: GENERAL: The patient is alert and oriented x3. HEENT: Head is normocephalic and atraumatic. Extraocular muscles are intact. NECK: Supple. CARDIOVASCULAR: Revealed normal S1 and S2. No murmurs, rubs, or gallops. Regular rate and rhythm. RESPIRATORY: Revealed mild wheezing bilaterally. ABDOMEN: Soft, nondistended, and nontender. NEUROLOGIC: Revealed normal cranial nerves 2 through 12 and normal sensory and motor examination. ASSESSMENT: 1. Febrile respiratory illness, rule out COVID-19. 2. Chronic obstructive pulmonary disease exacerbation. 3. Possible pneumonia. 4. Worsening lung cancer. PLAN: 1. Coronavirus nucleic acid amplification test will be obtained in the ER. 2. Ipratropium metered dose inhaler q.6 hours for wheezing. 3. Methylprednisolone 40 mg IV q.12 hours. 4. Ceftriaxone and azithromycin intravenously. 5. Replace potassium. 6. We will consult the patient's oncologist in the morning. 7. Code status. DNR. Job ID: [id number]
[2019-11-19] MEDS ORDERED: Azithromycin 500 MG in Sodium Chloride 0.9% 250 ML 250 ML IVPB SCH (23:59)
[2019-11-20] MEDS: Potassium Chloride 20 MEQ TAB PO SCH ×4 (00:40→14:22)
[2019-11-20] MEDS ORDERED: Bacteriostatic Water 30 ML VIAL FS PRN (02:49)
[2019-11-20 02:59] LABS: #Eosinphils 0.1 thou/uL (0.0-0.7); #Lymphocytes 1.4 thou/uL (1.20-3.40); #Monocytes 0.9 thou/uL (0.11-0.59); #Neutrophils 9.9 thou/uL (1.40-6.50); %Basophils 0.2 % (0.0-1.0); %Eosinophils 0.7 % (0.0-10.0); %Lymphocytes 11.5 % (21.0-51.0); %Monocytes 7.5 % (0.0-10.0); %Neutrophils 80.1 % (42.0-75.0); Hemoglobin 12.3 g/dL (12.0-16.0); Mean Corpuscular HGB CONC 31.5 g/dL (32.0-36.0); Mean Corpuscular Hemoglobin 29.6 pg (27.0-31.0); Mean Corpuscular Volume 93.9 fL (78.0-98.0); Mean Platelet Volume 6.3 fL (7.4-10.4); Platelet Count 471 thou/uL (130-400); RBC Distribution Width 12.9 % (11.5-14.5); Red Blood Cell (RBC) Count 4.16 mill/uL (4.20-5.40); White Blood Cell (WBC) Count 12.3 thou/uL (4.8-10.8)
[2019-11-20] MEDS ORDERED: methylPREDNISolone Sod Succ 40 MG VIAL IVP SCH ×2 (03:00→09:00)
[2019-11-20 03:24] LABS: Troponin I Less than 0.010 ng/mL (< 0.028)
[2019-11-20 04:08] LABS: Anion Gap 16 mmol/L (10-20); BUN (Urea Nitrogen) 4 mg/dL (9.8-20.1); Calc. Creatinine Clearance 80 mL/min (70-130); Calcium 8.5 mg/dL (7.8-10.44); Carbon Dioxide 25 mmol/L (23-31); Chloride 99 mmol/L (98-107); Estimated GFR-MDRD Greater than 90; Glucose 117 mg/dL (80-115); Sodium 137 mmol/L (136-145)
[2019-11-20 04:24] LABS: Potassium 2.6 mmol/L (3.5-5.1)
[2019-11-20] MEDS ORDERED: Potassium Chloride 40 MEQ in Sodium Chloride 0.9% 250 ML 250 ML IVPB SCH (04:45)
--- NOTE | 2019-11-20 07:55 | CT ---
CTA CHEST WITH CONTRAST: Axial tomograms were obtained following a pulmonary angio protocol with multiplanar reconstruction an d 3D post processing. INDICATION: Chest pain with elevated D-dimer. History of lung cancer. FINDINGS: The pulmonary arteries show adequate opacification. There is no evidence of pulmonary embolus identi fied. Thoracic aorta shows atherosclerotic change without dissection. Soft tissue windows show soft tissue mass density in the right hilum extending into the suprahilar region with diffuse pleural thi ckening in the right apex and dense atelectasis in the right upper lobe. This diffuse soft tissue pl eural density has increased when compared to the prior exam of 02/26/2019. There is retraction of the mediastinum which is relatively stable. Review of the lung wagner shows new pleural thickening and a small effusion in the posterior right lung base. There are patchy areas of infiltrate seen in the r ight upper and right lower lobes suggesting infectious pneumonitis. There is a new nodular opacity i n the mid left upper lobe which measures up to 1.3 cm. The nodular density in the posterior left low er lobe which was described previously appears stable and pleural-based seen on image 88 of 120. IMPRESSION: 1. No evidence of pulmonary embolus. 2. New patchy infiltrates in the right lung worrisome for infectious process. 3. A new nodular opacity in the left upper lobe concerning for neoplasm. 4. Increasing soft tissue density in the right suprahilar and right apical region with increased ple ural thickening extending into the right posterior lower lung. Findings are concerning for progressi on of neoplasm with a new left lung deposit. The patchy densities in the right lung could represent infectious process or metastatic deposits. Close followup is recommended. POS: [facility]
[2019-11-20] MEDS ORDERED: Prevnar 13-Val Conj/PF 0.5 ML SYRINGE IM ONE (09:00)
[2019-11-20] MEDS: methylPREDNISolone Sod Succ 40 MG VIAL IVP SCH ×2 (10:24→20:48)
[2019-11-20] MEDS: Heparin 5,000 UNITS/ML VIAL SC SCH ×3 (10:24→20:50)
[2019-11-20 12:09] LABS: SARS-CoV-2 MS2 Positive; SARS-CoV-2 N Gene Negative; SARS-CoV-2 S Gene Negative; SARS-CoV-2 orf1ab Negative
--- NOTE | 2019-11-20 12:11 | EKG ---
Test Reason : SOB Blood Pressure : / mmHG Vent. Rate : 066 BPM Atrial Rate : 066 BPM P-R Int : 148 ms QRS Dur : 070 ms QT Int : 522 ms P-R-T Axes : 061 068 227 degrees QTc Int : 547 ms Normal sinus rhythm Abnormal ECG Confirmed by HILARIA SON ([id number]), supervising editor trailer REMY DELEON ([id number]) on 11/20/2019 12:10:43 PM Referred By: Confirmed By:HILARIA Peterson
[2019-11-20] MEDS: HYDROcodone/Acetaminophen 10/325 mg Tablet PO PRN ×2 (14:23→21:02)
--- NOTE | 2019-11-20 19:37 | PDOC.HOSPP ---
- Subjective Encounter Date: 11/20/19 Encounter Time: 09:00 Subjective: no overnight events. This morning, feels better and breathing is better. has no complaints. - Objective Vital Signs & Weight: Vital Signs (12 hours) Temp Pulse Resp BP Pulse Ox 11/20/19 16:25 98.5 F 74 16 133/59 L 95 11/20/19 10:40 97.1 F L 78 18 128/57 L 93 L Weight Weight 115 lb 9.6 oz I&O: 11/19/19 11/20/19 11/21/19 06:59 06:59 06:59 Intake Total 250 910 Balance 250 910 Result Diagrams: 11/20/19 02:48 11/20/19 16:05 Hospitalist ROS - Review of Systems Constitutional: denies: chills, sweats Respiratory: reports: cough, dry. denies: shortness of breath, pleuritic pain, sputum Cardiovascular: denies: chest pain, palpitations Gastrointestinal: denies: nausea, vomiting, abdominal pain - Medication Medications: Active Medications Generic Name Dose Route Start Last Admin Trade Name Freq PRN Reason Stop Dose Admin Hydrocodone Bitart/Acetaminophen 1 tab 11/20/19 13:20 11/20/19 14:23 [place] 10/325 PO 1 tab Q4H PRN Administration pain Heparin Sodium (Porcine) 5,000 units 11/20/19 09:00 11/20/19 14:23 Heparin SC 5,000 units TID JEREMY Administration Methylprednisolone Sodium Succinate 40 mg 11/20/19 09:00 11/20/19 10:24 Solu-Medrol IVP 40 mg 0900,2100 JEREMY Administration - Exam General Appearance: NAD, awake alert General - other findings: cachetic Heart: RRR, no murmur, no gallops, no rubs Respiratory: no wheezes, no rales, no ronchi Respiratory - other findings: diffuse rhonchi Gastrointestinal: soft, non-tender, non-distended Hosp A/P - Plan #CAP #COPD exacerbation -continue current treatment Abx and steroid -covid ruled out #pulmonary nodule -left lung; possibly signifying recurrence of lung cancer after remission -onc consulted DNAR
[2019-11-20] MEDS ORDERED: traZODone HCl 50 MG TAB PO PRN (19:43)
[2019-11-20] MEDS: Mirtazapine 15 MG TAB PO SCH (20:48)
[2019-11-20] MEDS: ALPRAZolam 0.5 MG TAB PO SCH (20:48)
[2019-11-20] MEDS ORDERED: Azithromycin 500 MG in Sodium Chloride 0.9% 250 ML 250 ML IVPB SCH (21:00)
[2019-11-20] MEDS: cefTRIAXone\\ROCEPHIN 1 GM in Sodium Chloride 0.9% 100 ML IVPB SCH (22:53)
[2019-11-21] MEDS: Albuterol 200 PUFF (6.7GM INHALER) INH SCH ×4 (02:03→18:47)
[2019-11-21 04:39] LABS: #Lymphocytes 0.6 thou/uL (1.20-3.40); #Monocytes 0.2 thou/uL (0.11-0.59); #Neutrophils 9.7 thou/uL (1.40-6.50); %Eosinophils 0.2 % (0.0-10.0); %Monocytes 1.6 % (0.0-10.0); %Neutrophils 92.2 % (42.0-75.0); Hemoglobin 9.9 g/dL (12.0-16.0); Mean Corpuscular HGB CONC 31.5 g/dL (32.0-36.0); Mean Corpuscular Hemoglobin 29.6 pg (27.0-31.0); Mean Corpuscular Volume 94.1 fL (78.0-98.0); Mean Platelet Volume 6.3 fL (7.4-10.4); Platelet Count 429 thou/uL (130-400); RBC Distribution Width 12.8 % (11.5-14.5); Red Blood Cell (RBC) Count 3.35 mill/uL (4.20-5.40); White Blood Cell (WBC) Count 10.5 thou/uL (4.8-10.8)
[2019-11-21 05:00] LABS: Anion Gap 10 mmol/L (10-20); BUN (Urea Nitrogen) 8 mg/dL (9.8-20.1); Calc. Creatinine Clearance 88 mL/min (70-130); Calcium 8.3 mg/dL (7.8-10.44); Carbon Dioxide 26 mmol/L (23-31); Chloride 104 mmol/L (98-107); Estimated GFR-MDRD Greater than 90; Glucose 120 mg/dL (80-115); Potassium 4.8 mmol/L (3.5-5.1); Sodium 135 mmol/L (136-145)
[2019-11-21] MEDS: Mometasone 100 MCG/PUFF (1 INHALER) INH SCH ×2 (07:33→18:48)
[2019-11-21] MEDS ORDERED: Non-Formulary Item 1 EACH (Fluticasone/Umeclidin/Vilanter [Trelegy Ellipta 100-62.5-25] 1 INH SCH (09:00)
[2019-11-21] MEDS: Heparin 5,000 UNITS/ML VIAL SC SCH ×3 (09:03→21:18)
[2019-11-21] MEDS: ALPRAZolam 0.5 MG TAB PO SCH ×2 (09:03→21:17)
[2019-11-21] MEDS: Escitalopram Oxalate 20 mg Tablet PO SCH (09:03)
[2019-11-21] MEDS: methylPREDNISolone Sod Succ 40 MG VIAL IVP SCH ×2 (09:04→21:32)
[2019-11-21] MEDS: HYDROcodone/Acetaminophen 10/325 mg Tablet PO PRN ×3 (09:09→21:42)
[2019-11-21] MEDS ORDERED: Magnevist 469MG/ML 20 ML VIAL ONE (10:04)
--- NOTE | 2019-11-21 11:29 | PDOC.HOSPP ---
- Subjective Encounter Date: 11/21/19 Encounter Time: 08:00 Subjective: no overnight events. continues to improve clinically and breathing nearly at baseline. Continue to treat for CAP until 11/21 then for COPD exacerbation as outpatient. pending ONC evaluation - Objective Vital Signs & Weight: Vital Signs (12 hours) Temp Pulse Resp BP Pulse Ox 11/21/19 07:24 97.3 F L 64 16 117/60 95 11/21/19 03:21 67 16 143/67 H 97 11/21/19 00:00 62 18 126/60 96 Weight Weight 115 lb 9.6 oz I&O: 11/20/19 11/21/19 11/22/19 06:59 06:59 06:59 Intake Total 250 910 Balance 250 910 Result Diagrams: 11/21/19 04:19 11/21/19 04:19 Hospitalist ROS - Review of Systems Constitutional: denies: fever, chills, sweats, weakness, malaise, other Respiratory: reports: cough, dry. denies: shortness of breath, hemoptysis, SOB with excertion, pleuritic pain, sputum, wheezing, other Cardiovascular: denies: chest pain, palpitations, orthopnea, paroxysmal noc. dyspnea, edema, light headedness, other Gastrointestinal: denies: nausea, vomiting, abdominal pain, diarrhea, constipation, melena, hematochezia, other - Medication Medications: Active Medications Generic Name Dose Route Start Last Admin Trade Name Freq PRN Reason Stop Dose Admin Hydrocodone Bitart/Acetaminophen 1 tab 11/20/19 13:20 11/21/19 09:09 [place] 10/325 PO 1 tab Q4H PRN Administration Moderate Pain (4-6) Hydrocodone Bitart/Acetaminophen 2 tab 11/20/19 19:43 11/20/19 21:02 [place] 10/325 PO 2 tab Q6H PRN Administration Severe Pain (7-10) Albuterol Sulfate 2 puff 11/21/19 01:00 11/21/19 07:33 Proventil Hfa INH 2 puff [id number] JEREMY Administration Alprazolam 0.5 mg 11/20/19 21:00 11/21/19 09:03 Xanax PO 0.5 mg BID JEREMY Administration Escitalopram Oxalate 20 mg 11/21/19 09:00 11/21/19 09:03 Lexapro PO 20 mg QAM JEREMY Administration Heparin Sodium (Porcine) 5,000 units 11/20/19 09:00 11/21/19 09:03 Heparin SC 5,000 units TID JEREMY Administration Ceftriaxone Sodium 1 gm/ 100 mls @ 200 mls/hr 11/20/19 21:00 11/20/19 22:53 Sodium Chloride IVPB 100 mls 2100 JEREMY Administration Azithromycin 500 mg/ Sodium 250 mls @ 250 mls/hr 11/20/19 21:00 11/20/19 20: 48 Chloride IVPB 250 mls 2100 JEREMY Administration Methylprednisolone Sodium Succinate 40 mg 11/20/19 09:00 11/21/19 09:04 Solu-Medrol IVP 40 mg 09,2099 JEREMY Administration Mirtazapine 15 mg 11/20/19 21:00 11/20/19 20:48 Remeron PO 15 mg HS JEREMY Administration Mometasone Furoate 100 mcg 11/21/19 06:30 11/21/19 07:33 Asmanex Hfa 100 Mcg INH 100 mcg BID-RT JEREMY Administration - Exam General Appearance: NAD, awake alert Heart: RRR, no murmur, no gallops, no rubs Respiratory: CTAB, no wheezes, no rales, no ronchi Respiratory - other findings: breath sounds much improved compared to yesterday Extremities: no edema Psychiatric: normal affect, normal behavior, A&O x 3 Hosp A/P - Plan #CAP #COPD exacerbation -stop ceftriaxone 5/2 (CAP); continue azithromycin and steroid (5/3) -covid ruled out #pulmonary nodule -left lung; possibly signifying recurrence of lung cancer after remission -onc consulted DNAR
--- NOTE | 2019-11-21 16:18 | MRI ---
MRI BRAIN WITH AND WITHOUT CONTRAST: DATE: 11/21/2019 HISTORY: 64-year-old female with history of small cell lung cancer with multiple falls. Concern for intracrani al metastasis. COMPARISON: 11/06/2016 TECHNIQUE: Multiplanar, multisequence MRI of the brain obtained pre and post IV injection of gadolinium based co ntrast agent. FINDINGS: There is no obstructive hydrocephalus. There is no midline shift or any other evidence of mass effect . There is no extra-axial fluid collection. There are extensive, confluent T2-hyperintensities throughout the cerebral white matter, which is a completely new finding compared to the prior MRI. Th ere is no evidence of recent hemorrhage, mass, abnormal enhancement, or restricted diffusion. There is a small arachnoid cyst in the left middle cranial fossa. 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 2) no evidence of active intracranial metastatic disease. 3. Old left pterional craniotomy changes.
--- NOTE | 2019-11-21 20:09 | CON ---
DATE OF CONSULTATION: REASON FOR CONSULT: Small cell lung cancer. HISTORY OF PRESENT ILLNESS: Ms. Steven is a 64-year-old female who was diagnosed with limited stage small-cell lung cancer in 2015. She underwent chemotherapy and prophylactic whole-brain radiation completed in November 2016. She was followed by Dr. Feng with chest CT. Her last one was done in February of 2019. She did not follow up with us in the clinic and has not been seen since October of 2017. She presented to the hospital earlier this week with a 4-day history of fever; worsening cough over the last several weeks. She has a productive cough and shortness of breath. She is a longstanding smoker. She underwent a CT angio of the chest on admission, which showed no pulmonary embolus. However, there was a soft-tissue mass density in the right hilum extending into the suprahilar region with diffuse pleural thickening in the right apex and atelectasis in the right upper lobe. This was increased in size compared to her last CT scan on February of 2019. There is new pleural thickening and a small effusion in the posterior right lung base. There were areas of infiltrate in the right upper and lower lobes suggestive of an infectious pneumonitis. There was a new nodular opacity in the mid left upper lobe measuring 1.3 cm, a stable nodule in the left lower lobe. All this was concerning for recurrence of disease. The patient states she has not lost weight, but in fact gained as she has tried to quit smoking over the last several weeks secondary to shortness of breath. She has frequent falls. States her equilibrium is "off." She was seen at bedside this afternoon. She does have a productive cough and scattered rhonchi in all lobes. No fever today. PAST MEDICAL HISTORY: 1. Limited stage small-cell lung cancer in remission since 2016. 2. COPD. 3. History of SIADH. 4. Squamous cell carcinoma of the tongue in 2009. 5. Hypertension. 6. Depression. 7. History of hepatitis C. PAST SURGICAL HISTORY: 1. Craniotomy for brain cyst in 2000. 2. Appendectomy. 3. Hysterectomy. ALLERGIES: NO KNOWN DRUG ALLERGIES. CURRENT MEDICATIONS: 1. Alprazolam b.i.d. 2. Bisoprolol 5 mg daily. 3. Citalopram daily. 4. Trelegy Ellipta daily. 5. [place] p.r.n. 6. DuoNeb p.r.n. 7. Mirtazapine daily. 8. Zoloft b.i.d. 9. Desyrel daily. 10. Venlafaxine daily. FAMILY HISTORY: Noncontributory. SOCIAL HISTORY: , although her ex lives with her frequently. 40+ pack- year history of smoking. REVIEW OF SYSTEMS: 10-point review of systems is negative except for noted in HPI. PHYSICAL EXAMINATION: VITAL SIGNS: Temperature 97.4, pulse 73, respiratory rate 16, BP is 132/60. She is 94% on room air. GENERAL: This is a thin female, in no acute distress. HEENT: Normocephalic, atraumatic. Pupils are equal and reactive to light. NECK: Supple. CARDIOVASCULAR: Regular rate and rhythm. LUNGS: She has rhonchi throughout. ABDOMEN: Soft and nontender. Bowel sounds are positive. EXTREMITIES: There is no clubbing or cyanosis. SKIN: No rash. HEMATOLOGICAL: No petechiae or purpura. NEUROLOGICAL: Nonfocal. PERTINENT LABS AND X-RAYS: Current WBCs 10.5, hemoglobin 9.9, hematocrit 31.5, platelet count 429,000, 92% neutrophils, 6% lymphocytes. Sodium 135, potassium 4.8, chloride is 104, CO2 is 26, BUN is 8, creatinine 0.53, calcium 8.3, bilirubin 0.5, AST 19, ALT is less than 7, alkaline phosphatase is 66. COVID negative. RADIOLOGY: Per HPI. ASSESSMENT: 1. History of limited stage small-cell lung cancer, now with likely progression. 2. Chronic obstructive pulmonary disease. 3. History of falls. DISCUSSION: The patient needs an MRI of her brain and a bone scan for further staging. We discussed that this may be progression of disease. We discussed treatment with chemotherapy. She is hesitant to go through treatment again, however, is agreeable to continue with staging scans and discuss this further. Once her scans have been completed and she is stable, she can be discharged home to follow up in our clinic next week. I have consulted Dr. Feng who is familiar with her and was following her CT scans after treatment. Thank you for the consult. We will be happy to take care of this pleasant lady. Job ID: [id number] MTDD
[2019-11-21] MEDS: Mirtazapine 15 MG TAB PO SCH (21:17)
[2019-11-21] MEDS: cefTRIAXone\\ROCEPHIN 1 GM in Sodium Chloride 0.9% 100 ML IVPB SCH (21:19)
[2019-11-22] MEDS: Albuterol 200 PUFF (6.7GM INHALER) INH SCH ×4 (00:57→18:58)
[2019-11-22] MEDS: HYDROcodone/Acetaminophen 10/325 mg Tablet PO PRN ×3 (03:55→17:27)
[2019-11-22 04:53] LABS: #Lymphocytes 0.8 thou/uL (1.20-3.40); #Monocytes 0.3 thou/uL (0.11-0.59); #Neutrophils 10.9 thou/uL (1.40-6.50); %Basophils 0.1 % (0.0-1.0); %Eosinophils 0.4 % (0.0-10.0); %Lymphocytes 6.3 % (21.0-51.0); %Monocytes 2.3 % (0.0-10.0); %Neutrophils 90.9 % (42.0-75.0); Hemoglobin 11.1 g/dL (12.0-16.0); Mean Corpuscular HGB CONC 31.2 g/dL (32.0-36.0); Mean Corpuscular Hemoglobin 29.6 pg (27.0-31.0); Mean Corpuscular Volume 94.8 fL (78.0-98.0); Mean Platelet Volume 6.2 fL (7.4-10.4); Platelet Count 556 thou/uL (130-400); Red Blood Cell (RBC) Count 3.74 mill/uL (4.20-5.40)
[2019-11-22 05:16] LABS: Anion Gap 12 mmol/L (10-20); BUN (Urea Nitrogen) 11 mg/dL (9.8-20.1); Calc. Creatinine Clearance 85 mL/min (70-130); Calcium 8.8 mg/dL (7.8-10.44); Carbon Dioxide 27 mmol/L (23-31); Chloride 103 mmol/L (98-107); Estimated GFR-MDRD Greater than 90; Glucose 104 mg/dL (80-115); Potassium 5.1 mmol/L (3.5-5.1); Sodium 137 mmol/L (136-145)
[2019-11-22] MEDS: Mometasone 100 MCG/PUFF (1 INHALER) INH SCH ×2 (08:10→19:00)
[2019-11-22] MEDS: Heparin 5,000 UNITS/ML VIAL SC SCH ×3 (08:56→21:16)
[2019-11-22] MEDS ORDERED: Azithromycin 250 MG TAB PO SCH (09:00)
[2019-11-22] MEDS: ALPRAZolam 0.5 MG TAB PO SCH ×2 (09:01→21:15)
[2019-11-22] MEDS: Escitalopram Oxalate 20 mg Tablet PO SCH (09:01)
[2019-11-22] MEDS: methylPREDNISolone Sod Succ 40 MG VIAL IVP SCH (09:02)
--- NOTE | 2019-11-22 11:30 | PDOC.HOSPP ---
- Subjective Encounter Date: 11/22/19 (f/u COPD exacerbation) Encounter Time: 11:28 Subjective: Pt c/o feeling terrible and breathing about the same as when she presented to ER. She c/o productive cough of clear to brown sputum. She denies any n/v/ diarrhea. - Objective Vital Signs & Weight: Vital Signs (12 hours) Temp Pulse Resp BP Pulse Ox 11/22/19 07:29 97.7 F 79 16 147/68 H 94 L 11/22/19 03:28 72 16 143/66 H 93 L 11/22/19 00:00 97.7 F 77 16 153/69 H 93 L Weight Weight 129 lb 12.8 oz I&O: 11/21/19 11/22/19 11/23/19 06:59 06:59 06:59 Intake Total 910 1300 Output Total 550 200 Balance 910 750 -200 Result Diagrams: 11/22/19 04:44 11/22/19 04:44 EKG Reviewed by me: Yes (tele - sinus 80's) Hospitalist ROS - Medication Medications: Active Medications Generic Name Dose Route Start Last Admin Trade Name Freq PRN Reason Stop Dose Admin Hydrocodone Bitart/Acetaminophen 1 tab 11/20/19 13:20 11/21/19 09:09 [place] 10/325 PO 1 tab Q4H PRN Administration Moderate Pain (4-6) Hydrocodone Bitart/Acetaminophen 2 tab 11/20/19 19:43 11/22/19 10:25 [place] 10/325 PO 2 tab Q6H PRN Administration Severe Pain (7-10) Albuterol Sulfate 2 puff 11/21/19 01:00 11/22/19 08:08 Proventil Hfa INH 2 puff [id number] JEREMY Administration Alprazolam 0.5 mg 11/20/19 21:00 11/22/19 09:01 Xanax PO 0.5 mg BID JEREMY Administration Azithromycin 250 mg 11/22/19 09:00 11/22/19 09:01 Zithromax PO 11/24/19 09:01 250 mg DAILY JEREMY Administration Escitalopram Oxalate 20 mg 11/21/19 09:00 11/22/19 09:01 Lexapro PO 20 mg QAM JEREMY Administration Heparin Sodium (Porcine) 5,000 units 11/20/19 09:00 11/22/19 08:56 Heparin SC 5,000 units TID JEREMY Administration Ceftriaxone Sodium 1 gm/ 100 mls @ 200 mls/hr 11/20/19 21:00 11/21/19 21:19 Sodium Chloride IVPB 100 mls 2100 JEREMY Administration Methylprednisolone Sodium Succinate 40 mg 11/20/19 09:00 11/22/19 09:02 Solu-Medrol IVP 11/22/19 21:30 40 mg 0900,2100 JEREMY Administration Mirtazapine 15 mg 11/20/19 21:00 11/21/19 21:17 Remeron PO 15 mg HS JEREMY Administration Mometasone Furoate 100 mcg 11/21/19 06:30 11/22/19 08:10 Asmanex Hfa 100 Mcg INH 100 mcg BID-RT JEREMY Administration Sterile Water 1 ml 11/20/19 02:49 11/22/19 09:02 Bacteriostatic Water FS 1 ml PRN PRN Administration RECONSTITUTION - Exam General Appearance: NAD Heart: RRR, no murmur Heart - other findings: distant heart sounds Respiratory - other findings: scattered rhonchi - decreased breath sounds RUL Gastrointestinal: soft, non-tender, non-distended, normal bowel sounds Psychiatric: normal affect Hosp A/P (1) COPD exacerbation Code(s): J44.1 - CHRONIC OBSTRUCTIVE PULMONARY DISEASE W (ACUTE) EXACERBATION Status: Acute (2) Community acquired pneumonia Code(s): J18.9 - PNEUMONIA, UNSPECIFIED ORGANISM Status: Acute Qualifiers: Laterality: unspecified laterality Qualified Code(s): J18.9 - Pneumonia, unspecified organism (3) Hypokalemia Code(s): E87.6 - HYPOKALEMIA Status: Resolved (4) Anxiety and depression Code(s): F41.8 - OTHER SPECIFIED ANXIETY DISORDERS Status: Chronic (5) Hypertension Code(s): I10 - ESSENTIAL (PRIMARY) HYPERTENSION Status: Chronic (6) Small cell lung cancer Code(s): C34.90 - MALIGNANT NEOPLASM OF UNSP PART OF UNSP BRONCHUS OR LUNG Status: Chronic - Plan CAP - on Rocephin and Azithromycin - will leave both for now - abx started 18 November COPD exac - on IV steroids - will transition over to oral steroids starting tomorrow - is on inhaled steroid - scheduled MDI - add mucinex - will d/w Dr. Feng for further recommendations Potassium is trending up - recheck in AM, reviewed meds and pt is not on potassium replacement Pt on 2 SSRI per med list at home - but only escitalopram here. Requested RN verify with pharmacy. Reviewed other meds and are currently ordered dvt prophy - heparin gi prophy - not indicated code status DNAR Asked by RN to speak wiht pt's Mom at phone [employer] [phone]. I asked pt if she would like me to talk with her Mom - she states no. She will let me or her nurse know if this changes pt remains at high risk in current condition
--- NOTE | 2019-11-22 12:47 | CON ---
DATE OF CONSULTATION: 11/22/2019 HISTORY OF PRESENT ILLNESS: Era Steven is a 64-year-old female. She presented with over a week of progressive shortness of breath. She tells me she quit smoking 2 months ago. She was in the hospital in February of last year and it was very bronchospastic at that time when she had to have an evaluation for proximal humerus fracture. She was quite bronchospastic. She had copious amounts of clear sputum at that time. Her fracture was managed conservatively. She is back in the hospital with her shortness of breath. PAST MEDICAL HISTORY: Remarkable for, 1. Lung cancer in the right upper lobe that was small cell, treated in 2017. 2. History of COPD with chronic bronchospasm associated with smoking. 3. History of hyponatremia with small cell. 4. History of tongue cancer in 2009. 5. History of hypertension. 6. History of hepatitis C. 7. History of a brain cyst surgery in 2000. 8. History of an appendectomy. 9. History of tonsillectomy. MEDICATIONS: Medications have been reviewed. FAMILY HISTORY: Negative for lung disease in early age. SOCIAL HISTORY: She is . Again, she smoked until 2 months ago. REVIEW OF SYSTEMS: Ten point review of systems otherwise negative. PHYSICAL EXAMINATION: GENERAL: She is in no distress. She is complaining mainly of coughing. VITAL SIGNS: She is afebrile. Heart rate is in the 70s, respiratory rate 16, oximetry is 94% on room air, blood pressure 147/68. HEAD AND NECK: Remarkable only for cachexia. She has delayed speech with word searching (if I remember correctly she has had whole brain radiation). LUNGS: Remarkable for very few wheezes compared to the last time I saw her, which was last fall. HEART: Regular rhythm. ABDOMEN: Soft. EXTREMITIES: Without clubbing, cyanosis, or edema. LABORATORY DATA: CT scan is reviewed. It is interpreted as being indicative of recurrence of tumor in the right hilum. I am not convinced to that. There are some subtle changes. IMPRESSION: 1. Chronic obstructive pulmonary disease exacerbation leading to this admission. 2. Mild coexistent pneumonia, radiographically it is very small. 3. Extreme deconditioning with frequent falls last year. It is unlikely that she has an atypical organism. She has been on IV antibiotics long enough, to be switched to p.o. antibiotics. She was started on p.o. steroids today. She may be a candidate to go home tomorrow if we can get her cough under control. TIME SPENT: This is a 50-minute consult, 50% of the time spent on the unit coordinating care. Job ID: [id number] MTDD
--- NOTE | 2019-11-22 12:54 | NM ---
NUCLEAR MEDICINE BONE SCAN WHOLE BODY: (Skeletal scintigraphy) DATE: 11/22/2019 HISTORY: 64-year-old female with small cell lung cancer with left rib pain status post falls. Rule out bone me tastasis. COMPARISON: Bone scan of 06/12/2016 TECHNIQUE: IV injection of technetium 99m-[id number]: 30.5 mCi 3 hour delayed whole body skeletal scintigraphy in anterior and posterior views. FINDINGS: There is a new finding of a vertical array of small foci of increased uptake at the lateral aspects o f the left fourth, fifth, sixth, and seventh ribs. These correspond to the nonacute fractures with callus demonstrated on the CT of 11/19/2019. There are scattered small foci of increased uptake involving bilateral posterior elements along the m id and lower thoracic spine. These correspond to sclerotic degenerative changes at pseudoarticulations between bilateral transverse processes and the adjacent posterior aspects of bila teral ribs on that prior CT. There is increased uptake at bilateral knees and ankles consistent with osteoarthritis, worse than on the prior study. There is a focus of increased uptake in the left shoulder at the humeral head corresponding to the no nacute healing fracture of the left humeral head, partially demonstrated on the prior CT and chest radiograph, both of 11/19/2019. There are no additional foci of asymmetrically increased uptake that are particularly suspicious for bone metastases. There is a mild lateral curvature of the thoracic spine, new since the prior study. Small foci of inc reased uptake at right upper sacrum and left lumbosacral junction, presumably degenerative changes. IMPRESSION: 1. No compelling evidence of skeletal metastasis. 2. Nonacute, healing left lateral rib fractures. 3. Nonacute, healing left humeral head fracture. 4. Osteoarthrosis of bilateral knees, and bilateral ankles
[2019-11-22] MEDS: Benzonatate 100 MG CAP PO SCH ×2 (16:24→21:15)
[2019-11-22] MEDS: Cefdinir 300 MG CAP PO SCH (21:15)
[2019-11-22] MEDS: guaiFENesin ER 600 MG TAB PO SCH (21:15)
[2019-11-22] MEDS: Mirtazapine 15 MG TAB PO SCH (21:15)
[2019-11-23] MEDS: Albuterol 200 PUFF (6.7GM INHALER) INH SCH ×2 (00:40→08:07)
[2019-11-23 03:46] VITALS: BMI 21.9
[2019-11-23 05:13] LABS: #Eosinphils 0.1 thou/uL (0.0-0.7); #Lymphocytes 1.2 thou/uL (1.20-3.40); #Monocytes 0.7 thou/uL (0.11-0.59); #Neutrophils 11.9 thou/uL (1.40-6.50); %Basophils 0.1 % (0.0-1.0); %Eosinophils 0.5 % (0.0-10.0); %Lymphocytes 8.6 % (21.0-51.0); %Monocytes 4.9 % (0.0-10.0); %Neutrophils 85.9 % (42.0-75.0); Hemoglobin 10.6 g/dL (12.0-16.0); Mean Corpuscular HGB CONC 31.6 g/dL (32.0-36.0); Mean Corpuscular Hemoglobin 30.1 pg (27.0-31.0); Mean Corpuscular Volume 95.4 fL (78.0-98.0); Platelet Count 510 thou/uL (130-400); RBC Distribution Width 13.1 % (11.5-14.5); Red Blood Cell (RBC) Count 3.52 mill/uL (4.20-5.40); White Blood Cell (WBC) Count 13.8 thou/uL (4.8-10.8)
[2019-11-23 05:33] LABS: Anion Gap 11 mmol/L (10-20); BUN (Urea Nitrogen) 10 mg/dL (9.8-20.1); Calc. Creatinine Clearance 92 mL/min (70-130); Calcium 7.9 mg/dL (7.8-10.44); Carbon Dioxide 25 mmol/L (23-31); Chloride 104 mmol/L (98-107); Estimated GFR-MDRD Greater than 90; Glucose 87 mg/dL (80-115); Potassium 3.8 mmol/L (3.5-5.1); Sodium 136 mmol/L (136-145)
[2019-11-23] MEDS ORDERED: predniSONE 20 MG TAB PO SCH (08:00)
[2019-11-23] MEDS: Mometasone 100 MCG/PUFF (1 INHALER) INH SCH ×2 (08:07→18:43)
[2019-11-23] MEDS: Heparin 5,000 UNITS/ML VIAL SC SCH ×3 (08:22→21:55)
[2019-11-23] MEDS ORDERED: Ondansetron ODT 4 MG TAB PO PRN (08:37)
[2019-11-23] MEDS ORDERED: Ondansetron HCl/PF 4 MG in Sodium Chloride 0.9% 50 ML IVPB PRN (08:37)
[2019-11-23] MEDS ORDERED: Albuterol Sulfate 1.25 MG/3 ML NEB NEB PRN (09:45)
--- NOTE | 2019-11-23 09:52 | PDOC.HOSPP ---
- Subjective Encounter Date: 11/23/19 (f/u pneumonia) Encounter Time: 09:51 Subjective: Called by RN this morning for change in status - pt not oxygen requiring and has shortness of breath. Pt states her chest hurts, she feels short of breath, she is unable to cough up secretions. Also noted this morning is nausea. - Objective Vital Signs & Weight: Vital Signs (12 hours) Temp Pulse Resp BP Pulse Ox 11/23/19 07:34 97.9 F 104 H 18 135/78 95 11/23/19 03:00 97.8 F 71 16 141/63 H 92 L Weight Weight 128 lb 1.6 oz I&O: 11/22/19 11/23/19 11/24/19 06:59 06:59 06:59 Intake Total 1300 1480 Output Total 550 1750 Balance 750 -270 Result Diagrams: 11/23/19 04:57 11/23/19 04:57 EKG Reviewed by me: Yes (tele - sinus 90's, pac's, 3 beats of NSVT and 10 sec SVT) Hospitalist ROS - Medication Medications: Active Medications Generic Name Dose Route Start Last Admin Trade Name Freq PRN Reason Stop Dose Admin Hydrocodone Bitart/Acetaminophen 1 tab 11/20/19 13:20 11/21/19 09:09 [place] 10/325 PO 1 tab Q4H PRN Administration Moderate Pain (4-6) Hydrocodone Bitart/Acetaminophen 2 tab 11/20/19 19:43 11/22/19 17:27 [place] 10/325 PO 2 tab Q6H PRN Administration Severe Pain (7-10) Alprazolam 0.5 mg 11/20/19 21:00 11/22/19 21:15 Xanax PO 0.5 mg BID JEREMY Administration Benzonatate 200 mg 11/22/19 15:00 11/22/19 21:15 Tessalon PO 200 mg TID JEREMY Administration Cefdinir 300 mg 11/22/19 21:00 11/22/19 21:15 Omnicef PO 300 mg BID JEREMY Administration Escitalopram Oxalate 20 mg 11/21/19 09:00 11/22/19 09:01 Lexapro PO 20 mg QAM JEREMY Administration Guaifenesin 600 mg 11/22/19 21:00 11/22/19 21:15 Mucinex PO 600 mg Q12HR JEREMY Administration Heparin Sodium (Porcine) 5,000 units 11/20/19 09:00 11/23/19 08:22 Heparin SC 5,000 units TID JEREMY Administration Mirtazapine 15 mg 11/20/19 21:00 11/22/19 21:15 Remeron PO 15 mg HS JEREMY Administration Mometasone Furoate 100 mcg 11/21/19 06:30 11/23/19 08:07 Asmanex Hfa 100 Mcg INH 100 mcg BID-RT JEREMY Administration Sterile Water 1 ml 11/20/19 02:49 11/22/19 09:02 Bacteriostatic Water FS 1 ml PRN PRN Administration RECONSTITUTION - Exam General Appearance: NAD Heart: RRR, no murmur Respiratory - other findings: scattered rhonchi and transmitted upper airway sounds, exp wheezing Gastrointestinal: soft, non-tender, non-distended, normal bowel sounds Extremities: no cyanosis, no clubbing, no edema Psychiatric - other findings: tired appearing Hosp A/P (1) COPD exacerbation Code(s): J44.1 - CHRONIC OBSTRUCTIVE PULMONARY DISEASE W (ACUTE) EXACERBATION Status: Acute (2) Community acquired pneumonia Code(s): J18.9 - PNEUMONIA, UNSPECIFIED ORGANISM Status: Acute Qualifiers: Laterality: unspecified laterality Qualified Code(s): J18.9 - Pneumonia, unspecified organism (3) Hypokalemia Code(s): E87.6 - HYPOKALEMIA Status: Resolved (4) Anxiety and depression Code(s): F41.8 - OTHER SPECIFIED ANXIETY DISORDERS Status: Chronic (5) Hypertension Code(s): I10 - ESSENTIAL (PRIMARY) HYPERTENSION Status: Chronic (6) Small cell lung cancer Code(s): C34.90 - MALIGNANT NEOPLASM OF UNSP PART OF UNSP BRONCHUS OR LUNG Status: Suspected - Plan Acute resp failure with hypoxia in the context of CAP and COPD exacerbation with concern for return of malignancy. - Appreciate Pulm recommendations - will change breathing tx to Duonebs q4h (from albuterol MDI) - continue BID asmanex - magnesium 1 gram IV now - pt has not received prednisone due to nausea - will change back to IV steroids and dose TID - q2h prn albuterol - suction available for patient - STAT Chest xray now Potassium normal - was hypokalemic on admission Zofran prn nausea and start IV protonix due to steroids Pt on 2 SSRI per med list at home - but only escitalopram here. Requested RN verify with pharmacy - awaiting the information. dvt prophy - heparin gi prophy - not indicated code status DNAR pt remains at high risk in current condition reviewed plan of care with RT, RN and patient, no questions or further needs at end of eval.
[2019-11-23] MEDS ORDERED: methylPREDNISolone Sod Succ 40 MG VIAL IVP SCH (10:00)
[2019-11-23] MEDS ORDERED: Sodium Chloride 0.9% (PF) 10 ML VIAL FS PRN (10:06)
--- NOTE | 2019-11-23 10:10 | RAD ---
RADIOGRAPH CHEST 1 VIEW: DATE: 11/23/2019 TIME: 9:56 AM HISTORY: 64-year-old female with worsening dyspnea COMPARISON: 11/19/2019 FINDINGS: There is a new finding of mild interstitial densities at the bilateral lower lung zones., Right great er than left. There has been no other interval change. Right upper lobe consolidation with large cavitation, contiguous with enlargement of right hilum, and architectural distortion. Narrowing of right mainstem bronchus and deviation, due to surrounding tumor. Widening of the mediastinum. Left upper lobe is clear. No pneumothorax. IMPRESSION: 1. Interval development of acute, mild interstitial densities in the bilateral lower lung zones, righ t greater than left. Differential diagnosis includes noncardiogenic pulmonary interstitial edema, infectious pneumonitis, and lymphangitic carcinomatosis (unlikely due to rapid interval development). 2. Right upper lobe cavitary mass with right hilar and mediastinal involvement: Lung cancer
[2019-11-23] MEDS: Cefdinir 300 MG CAP PO SCH ×2 (11:11→21:57)
[2019-11-23] MEDS: Benzonatate 100 MG CAP PO SCH ×3 (11:11→21:58)
[2019-11-23] MEDS: Escitalopram Oxalate 20 mg Tablet PO SCH (11:12)
[2019-11-23] MEDS: guaiFENesin ER 600 MG TAB PO SCH ×2 (11:12→21:56)
[2019-11-23] MEDS: ALPRAZolam 0.5 MG TAB PO SCH ×2 (11:12→21:56)
--- NOTE | 2019-11-23 11:16 | PDOC.EVN ---
Event Note - Event Note Event Note: Pt not taking PO due to nausea and requesting pain meds- placed order for low dose morphine for prn use. 13:09 - informed by nurse that breathing is worse - pt evaluated and tachypneic , tired appearing with labored breathing. Scattered rhonchi, fair air movement with some expiratory wheezing. Requested another neb tx, start bipap to assist with breathing and transfer to ICU. Will also order an ABG. Confirmed with nurse that pt has received IV magnesium, IV steroids today. Will order another 1 gram IV magnesium.
[2019-11-23] MEDS: Morphine 2 MG/ML SYRINGE SLOW IVP PRN ×2 (11:30→17:32)
[2019-11-23] MEDS: Pantoprazole 40 MG VIAL IVP SCH (11:31)
[2019-11-23 13:56] LABS: Actual Bicarbonate (HCO3a) 24.3 mEq/L (22-28); Base Excess (BEa) -2.5 mEq/L (-2.0 to +3.0); CO2 Tension 50.7 mmHg (35.0-45.0); Calcium, Ionized 1.13 mmol/L (1.12-1.30); Carboxyhemoglobin (COHb) 0.5 gm% (0.0-3.0); Hemoglobin (Hb) 11.6 g/dL (12.0-16.0); Potassium - ABG Lab 4.38 mmol/L (3.70-5.30)
[2019-11-23 14:23] LABS: ALV-art Gradient 90.125 (0-20); Puncture Site LB
[2019-11-23] MEDS ORDERED: Sodium Chloride 0.9% 1,000 ML IV SCH (16:00)
[2019-11-23] MEDS: 1/2 NS w/KCL 20 mEq 1,000 ML IV SCH (17:31)
--- NOTE | 2019-11-23 19:44 | PRG ---
DATE OF SERVICE: 11/23/2019 SUBJECTIVE: Era Steven was evaluated this morning. She did not feel any better, but also said that she did not feel any worse. Apparently, this afternoon she became more short of breath. She was transferred to critical care for BiPAP. She is adamant that she never be intubated. On BiPAP, she looks more comfortable. OBJECTIVE: VITAL SIGNS: Heart rate is 116, blood pressure 108/80, respiratory rates in the teens. LUNGS: Remarkable for distant breath sounds. HEART: Regular rhythm. ABDOMEN: Soft. IMPRESSION: 1. Chronic obstructive pulmonary disease that is advanced. 2. Small cell lung cancer?, recurrent. 3. Extreme deconditioning, which has been an issue for the last year at least. I suspect the majority of her problems are related to an inability to effectively clear her secretions with a weak cough. She has remained in critical care unit for now. Overall, she looks better this afternoon. CRITICAL CARE TIME: 30 minutes. Job ID: [id number]
[2019-11-23] MEDS: methylPREDNISolone Sod Succ 40 MG VIAL IVP SCH (19:45)
[2019-11-23] MEDS: Mirtazapine 15 MG TAB PO SCH (21:56)
[2019-11-24] MEDS: Morphine 4 MG/ML VIAL SLOW IVP PRN ×5 (00:34→22:22)
[2019-11-24] MEDS: methylPREDNISolone Sod Succ 40 MG VIAL IVP SCH ×3 (03:27→18:39)
[2019-11-24 03:53] LABS: #Eosinphils 0.1 thou/uL (0.0-0.7); #Lymphocytes 0.8 thou/uL (1.20-3.40); #Monocytes 0.7 thou/uL (0.11-0.59); #Neutrophils 17.7 thou/uL (1.40-6.50); %Basophils 0.1 % (0.0-1.0); %Eosinophils 0.3 % (0.0-10.0); %Lymphocytes 4.3 % (21.0-51.0); %Monocytes 3.5 % (0.0-10.0); %Neutrophils 91.9 % (42.0-75.0); Hemoglobin 10.9 g/dL (12.0-16.0); Mean Corpuscular HGB CONC 31.3 g/dL (32.0-36.0); Mean Corpuscular Hemoglobin 30.1 pg (27.0-31.0); Mean Corpuscular Volume 96.4 fL (78.0-98.0); Mean Platelet Volume 6.2 fL (7.4-10.4); Platelet Count 514 thou/uL (130-400); RBC Distribution Width 13.3 % (11.5-14.5); Red Blood Cell (RBC) Count 3.62 mill/uL (4.20-5.40); White Blood Cell (WBC) Count 19.3 thou/uL (4.8-10.8)
[2019-11-24 04:11] LABS: Anion Gap 19 mmol/L (10-20); BUN (Urea Nitrogen) 11 mg/dL (9.8-20.1); Calc. Creatinine Clearance 78 mL/min (70-130); Calcium 8.2 mg/dL (7.8-10.44); Carbon Dioxide 18 mmol/L (23-31); Chloride 105 mmol/L (98-107); Estimated GFR-MDRD 90; Glucose 140 mg/dL (80-115); Potassium 5.3 mmol/L (3.5-5.1); Sodium 137 mmol/L (136-145)
[2019-11-24] MEDS: Sodium Chloride 0.45% 1,000 ML IV SCH ×2 (05:39→20:41)
[2019-11-24] MEDS: 1/2 NS w/KCL 20 mEq 1,000 ML IV SCH (05:40)
[2019-11-24] MEDS: Mometasone 100 MCG/PUFF (1 INHALER) INH SCH ×2 (07:22→18:36)
--- NOTE | 2019-11-24 07:39 | PDOC.HOSPP ---
- Subjective Encounter Date: 11/24/19 (f/.u resp failure) Encounter Time: 07:36 Subjective: Pt admitted for resp failure and treated for pneumonia and COPD exacerbation, CT scan concerning for recurrence of lung cancer. Two days ago was improving with a plan to d/c to home for outpatient follow up in the cancer clinic. Yesterday pt with worsening of breathing - more labored, oxygen requiring. She was moved to the ICU, started on Bipap, steroids changed back to IV, and she received IV magnesium x 2, in addition to nebulizer therapy. This morning pt reports being hungry and thirsty. States her breathing feels difficult, and she is uncomfortable wearing the mask. She denies any new sx. - Objective Vital Signs & Weight: Vital Signs (12 hours) Temp Pulse Resp Pulse Ox 11/24/19 07:22 122 H 21 H 100 11/24/19 02:11 21 H 100 11/24/19 00:00 97.7 F 11/23/19 22:18 119 H 19 100 11/23/19 20:00 97.2 F L 100 Weight Weight 128 lb 8.472 oz Most Recent Monitor Data Heart Rate from ECG 126 NIBP 126/92 NIBP BP-Mean 103 Respiration from ECG 24 SpO2 99 I&O: 11/23/19 11/24/19 11/25/19 06:59 06:59 06:59 Intake Total 1480 2080.6 Output Total 1750 50 Balance -270 2030.6 Result Diagrams: 11/24/19 03:35 11/24/19 14:03 EKG Reviewed by me: Yes (tele - sinus 120's) Hospitalist ROS - Medication Medications: Active Medications Generic Name Dose Route Start Last Admin Trade Name Freq PRN Reason Stop Dose Admin Hydrocodone Bitart/Acetaminophen 1 tab 11/20/19 13:20 11/21/19 09:09 [place] 10/325 PO 1 tab Q4H PRN Administration Moderate Pain (4-6) Hydrocodone Bitart/Acetaminophen 2 tab 11/20/19 19:43 11/22/19 17:27 [place] 10/325 PO 2 tab Q6H PRN Administration Severe Pain (7-10) Albuterol/Ipratropium 3 ml 11/23/19 14:30 11/24/19 07:22 Duoneb NEB 3 ml [id number] JEREMY Administration Alprazolam 0.5 mg 11/20/19 21:00 11/23/19 21:56 Xanax PO 0.5 mg BID JEREMY Administration Benzonatate 200 mg 11/22/19 15:00 11/23/19 21:58 Tessalon PO Not Given TID [facility] Cefdinir 300 mg 11/22/19 21:00 11/23/19 21:57 Omnicef PO Not Given BID [facility] Escitalopram Oxalate 20 mg 11/21/19 09:00 11/23/19 11:12 Lexapro PO Not Given QAM [facility] Guaifenesin 600 mg 11/22/19 21:00 11/23/19 21:56 Mucinex PO Not Given Q12HR [facility] Heparin Sodium (Porcine) 5,000 units 11/20/19 09:00 11/23/19 21:55 Heparin SC 5,000 units TID JEREMY Administration Ondansetron HCl 4 mg/ Sodium 52 mls @ 200 mls/hr 11/23/19 08:37 11/23/19 10: 06 Chloride IVPB 52 mls Q6H PRN Administration Nausea Sodium Chloride 1,000 mls @ 70 mls/hr 11/24/19 05:45 11/24/19 05:39 1/2 Normal Saline IV 1,000 mls .[id number] JEREMY Administration Methylprednisolone Sodium Succinate 40 mg 11/23/19 19:00 11/24/19 03:27 Solu-Medrol IVP 40 mg 0300,1100,1900 JEREMY Administration Mirtazapine 15 mg 11/20/19 21:00 11/23/19 21:56 Remeron PO 15 mg HS JEREMY Administration Mometasone Furoate 100 mcg 11/21/19 06:30 11/24/19 07:22 Asmanex Hfa 100 Mcg INH 100 mcg BID-RT JEREMY Administration Morphine Sulfate 4 mg 11/23/19 20:43 11/24/19 04:49 Morphine SLOW IVP 4 mg Q2H PRN Administration PAIN/ANXIETY WITH BREATHING Pantoprazole Sodium 40 mg 11/23/19 10:00 11/23/19 11:31 Protonix IVP 40 mg 1000 JEREMY Administration Sterile Water 1 ml 11/20/19 02:49 11/22/19 09:02 Bacteriostatic Water FS 1 ml PRN PRN Administration RECONSTITUTION - Exam General Appearance: NAD General - other findings: sitting up, awake and alert Heart: RRR, no murmur Respiratory - other findings: improved air mvmt, prolonged exhalation with wheezing, scattered rhonchi Gastrointestinal: soft, non-tender, non-distended, normal bowel sounds Extremities: no cyanosis, no clubbing, no edema Psychiatric - other findings: more alert today Hosp A/P (1) COPD exacerbation Code(s): J44.1 - CHRONIC OBSTRUCTIVE PULMONARY DISEASE W (ACUTE) EXACERBATION Status: Acute (2) Community acquired pneumonia Code(s): J18.9 - PNEUMONIA, UNSPECIFIED ORGANISM Status: Acute Qualifiers: Laterality: unspecified laterality Qualified Code(s): J18.9 - Pneumonia, unspecified organism (3) Hypokalemia Code(s): E87.6 - HYPOKALEMIA Status: Resolved (4) Anxiety and depression Code(s): F41.8 - OTHER SPECIFIED ANXIETY DISORDERS Status: Chronic (5) Hypertension Code(s): I10 - ESSENTIAL (PRIMARY) HYPERTENSION Status: Chronic (6) Small cell lung cancer Code(s): C34.90 - MALIGNANT NEOPLASM OF UNSP PART OF UNSP BRONCHUS OR LUNG Status: Suspected - Plan Acute resp failure with hypoxia in the context of CAP and COPD exacerbation with concern for return of malignancy. - Appreciate Pulm recommendations - continue duonebs, asmanex, IV steroids and antibiotics - Bipap as tolerated - pt/ot Repeat Potassium this afternoon at high end of normal - continue monitoring. Continue zofran prn, aspiration precautions with patient - requires thickened liquids and very small amounts. Palliative care consult to assist with goals of care patient support. dvt prophy - heparin gi prophy - not indicated code status DNAR - pt is clear about this. pt remains at high risk in current condition reviewed plan of care with patient, no questions or further needs at end of eval Addendum 22:28 - reviewed orders earlier and noticed filgrastim ordered this afternoon ordered by INTERNATIONAL SALES MANAGER Yesenia Christiansen. Reviewed order with Yesenia - incorrect medicine, not needed for this patient. Order cancelled, and RN informed. Monitor patient for side effects. Report entered into [facility].
[2019-11-24] MEDS: ALPRAZolam 0.5 MG TAB PO SCH ×2 (08:52→20:38)
[2019-11-24] MEDS: Cefdinir 300 MG CAP PO SCH ×2 (08:55→21:40)
[2019-11-24] MEDS: guaiFENesin ER 600 MG TAB PO SCH ×2 (08:55→21:40)
[2019-11-24] MEDS: Escitalopram Oxalate 20 mg Tablet PO SCH (08:55)
[2019-11-24] MEDS: Pantoprazole 40 MG VIAL IVP SCH (09:00)
[2019-11-24] MEDS: Heparin 5,000 UNITS/ML VIAL SC SCH ×3 (09:00→21:48)
[2019-11-24] MEDS: Benzonatate 100 MG CAP PO SCH ×3 (09:01→21:42)
--- NOTE | 2019-11-24 11:09 | PRG ---
DATE OF SERVICE: 11/24/2019 SUBJECTIVE: Era Steven was examined with BiPAP off this morning while she was starting to eat breakfast and drink. She is clearly aspirating thin liquids. She is back on BiPAP. She has a very weak cough. OBJECTIVE: VITAL SIGNS: Heart rate is 119 early this morning. Off BiPAP, her heart rate went up to 140. Blood pressure 105/86, respiratory rates in the 20s. LUNGS: Remarkable for rhonchorous wheezes. HEART: Regular rhythm. ABDOMEN: Soft. IMPRESSION: 1. Extreme weakness and deconditioning. 2. Chronic obstructive pulmonary disease exacerbation. 3. Inability to effectively clear secretions. 4. Clinical aspiration. 5. Small-cell lung cancer. I am not convinced she has recurrent disease, but unfortunately, her muscle weakness may get the best of her. She may not survive this. Job ID: [id number]
--- NOTE | 2019-11-24 13:29 | PDOC.MOPN ---
Interval History: on bpap. per nurse, aspirating any oral intake. - Vital Signs Vital Signs: Vital Signs (12 hours) Temp Pulse Resp Pulse Ox 11/24/19 12:00 98.4 F 11/24/19 10:50 113 H 3 L 100 11/24/19 08:00 98.2 F 11/24/19 07:22 122 H 21 H 100 11/24/19 02:11 21 H 100 Weight Weight 128 lb 8.472 oz Most Recent Monitor Data Heart Rate from ECG 128 NIBP 122/81 NIBP BP-Mean 94 Respiration from ECG 14 SpO2 100 - Physical Exam General: Alert, Oriented x3, No acute distress HEENT: Atraumatic Lungs: Other (rhonchi) Cardiovascular: Other (tachy) Abdomen: Normal bowel sounds, Soft, No tenderness, No hepatospenomegaly, No masses Extremities: No clubbing, No cyanosis, No edema, Normal pulses, No tenderness/ swelling Neurological: Normal speech - Labs Result Diagrams: 11/24/19 03:35 11/24/19 03:34 Lab results: Laboratory Results - last 24 hr 11/24/19 03:35: WBC 19.3 H, RBC 3.62 L, Hgb 10.9 L, Hct 34.9 L, MCV 96.4, MCH 30.1, MCHC 31.3 L, RDW 13.3, Plt Count 514 H, MPV 6.2 L, Neutrophils % 91.9 H, Lymphocytes % 4.3 L, Monocytes % 3.5, Eosinophils % 0.3, Basophils % 0.1, Neutrophils # 17.7 H, Lymphocytes # 0.8 L, Monocytes # 0.7 H, Eosinophils # 0.1 , Basophils # 0.0 11/24/19 03:34: Sodium 137, Potassium 5.3 H, Chloride 105, Carbon Dioxide 18 L, Anion Gap 19, BUN 11, Creatinine 0.66, Estimated GFR (MDRD) 90, Glucose 140 H, Calcium 8.2 11/23/19 13:30: Specimen Type ARTERIAL, Puncture Site LB, Bicarbonate Actual 24.3, ABG pH 7.30 L, ABG pCO2 50.7 H, ABG pO2 203.0 H, ABG O2 Sat Calc/Chani 99.5 H, ABG O2 Content 16.6 L, ABG Base Excess -2.5 L, ABG Hematocrit 34.0 L, ABG Hemoglobin 11.6 L, ABG Oxyhemoglobin 98.7 H, ABG Carboxyhemoglobin 0.5, ABG Methemoglobin 0.30, ABG Deoxyhemoglobin 0.5, Roly Test NOT DONE, A-a O2 Gradient 90.125 H, Sodium 139, Potassium 4.38, Chloride 103, Ionized Calcium 1.13, Mode of Support BIPPAP 16/6, % Minute Volume 10.8, Spontaneous Rate 20, Inspired O2 50, Spontaneous Tidal Vol 492 Status: lab reviewed by me A/P - Problem (1) Community acquired pneumonia Current Visit: Yes Code(s): J18.9 - PNEUMONIA, UNSPECIFIED ORGANISM Status: Acute Qualifiers: Laterality: unspecified laterality Qualified Code(s): J18.9 - Pneumonia, unspecified organism (2) COPD exacerbation Current Visit: No Code(s): J44.1 - CHRONIC OBSTRUCTIVE PULMONARY DISEASE W ( ACUTE) EXACERBATION Status: Acute (3) Small cell lung cancer Current Visit: No Code(s): C34.90 - MALIGNANT NEOPLASM OF UNSP PART OF UNSP BRONCHUS OR LUNG Status: Suspected - Plan Plan: Remains on bpap, sats drop rapidly when BPAP removed Aspiration precautions Likely need PET in outpatient setting to determine in cancer back However, remains very weak and may not survive this hospitalization
--- NOTE | 2019-11-24 13:41 | PDOC.PALCO ---
Palliative Care Consult - Consult Details Requesting Physician: Dr Da Silva Reason for Consult: goals of care - Pertinent HPI 64 year old female who has a history of lung cancer and COPD who had an onset of fever and weakness that progressed over 4 days. No triggers or mitigating factors. Also noted in history to have nausea, vomiting, shortness of breath, wheezing, and cough. Presented to the emergency room for evaluation and CT identified worsening lung cancer with possible infiltrates that may be an infections process. DNAR. Lives with her friend Carlie. She states he would be a decision maker for her if needed. 11/22/2019 Ms West plan was to follow up with the cancer clinic at discharge for evaluation. However, decline necessitated transition to CCU. - Pertinent PMH Lung cancer, COPD - Social History Smoking Status: Former smoker Smoking: quit greater than 1 year Alcohol Use: occasional Drug Use History: none Living Situation: with partner - Medications MAR Reviewed: Yes - Allergies Allergies/Adverse Reactions: Allergies Allergy/AdvReac Type Severity Reaction Status Date / Time No Known Allergies Allergy Verified 11/20/19 01:20 - Subjective Recent transition back to CCU, on BiPap with steroids. Labored respirations with accessory muscle use. - ROS Constitutional: alert, weakness ENT: dry mouth Respiratory: shortness of breath, shortness of breath with extertion Cardiology: other (denies chest pain) Gastrointestinal: other (denies diarrhea, nausea) Neurological: weakness - Objective Vital Signs: Vital Signs - Most Recent Temp Pulse Resp BP Pulse Ox 98.4 F 113 H 3 L 99/68 100 11/24/19 12:00 11/24/19 10:50 11/24/19 10:50 11/23/19 11:18 11/24/19 10:50 Palliative Performance Scale: 30 - Physical Exam Constitutional: cachectic, ill appearing, mild distress HEENT: EOMI, sclera anicteric Deviation from normal: Dry oral membranes Respiratory: accessory muscle use, labored respirations Gastrointestinal: soft, non-tender Musculoskeletal: no cyanosis, no clubbing, no edema Neurology: moves all 4 limbs, no focal deficits Skin: no lesions, no rash Deviation from normal: Pallor Psychiatric: normal mood - Problem List (1) Palliative care encounter Code(s): Z51.5 - ENCOUNTER FOR PALLIATIVE CARE Current Visit: Yes Status: Acute (2) Physical deconditioning Code(s): R53.81 - OTHER MALAISE Current Visit: Yes Status: Acute (3) COPD exacerbation Code(s): J44.1 - CHRONIC OBSTRUCTIVE PULMONARY DISEASE W (ACUTE) EXACERBATION Current Visit: No Status: Acute (4) Protein-calorie malnutrition, moderate Code(s): E44.0 - MODERATE PROTEIN-CALORIE MALNUTRITION Current Visit: No Status: Chronic (5) Small cell lung cancer Code(s): C34.90 - MALIGNANT NEOPLASM OF UNSP PART OF UNSP BRONCHUS OR LUNG Current Visit: No Status: Suspected - Plan/Recommendations Plan: Visited with patient, originally from [place], however in the [facility] greater than 20 years. Lives independently with Carlie. Uncertain of current prognosis. *Communicated Palliative Care involvement with Dr Da Silva and Oncology, will follow up with Dr Feng 11/25/2019 *Oncology to revisit with patient *Dr Da Silva requested emotional support for patient *Will assist with defining goal of care for patient as directed Please also refer to Yasmin Marsh RNparty plan sales agent notes in note section [50] minutes spent on this encounter with >50% of the time in counseling and coordination of care. Thank you for this very appropriate consult.
[2019-11-24 14:25] VITALS: BP 101/70
[2019-11-24 14:25] LABS: Anion Gap 16 mmol/L (10-20); BUN (Urea Nitrogen) 13 mg/dL (9.8-20.1); Calc. Creatinine Clearance 75 mL/min (70-130); Calcium 8.6 mg/dL (7.8-10.44); Carbon Dioxide 25 mmol/L (23-31); Chloride 102 mmol/L (98-107); Estimated GFR-MDRD 85; Glucose 139 mg/dL (80-115); Potassium 5.1 mmol/L (3.5-5.1); Sodium 138 mmol/L (136-145)
[2019-11-24] MEDS ORDERED: Ondansetron PF 4 MG/2 ML Vial IVP PRN (20:15)
[2019-11-24] MEDS: Mirtazapine 15 MG TAB PO SCH (20:38)
[2019-11-25] MEDS: Morphine 4 MG/ML VIAL SLOW IVP PRN ×2 (03:32→11:26)
[2019-11-25] MEDS: methylPREDNISolone Sod Succ 40 MG VIAL IVP SCH ×2 (03:32→10:50)
[2019-11-25 03:51] LABS: Hemoglobin 10.6 g/dL (12.0-16.0); Mean Corpuscular HGB CONC 32.4 g/dL (32.0-36.0); Mean Corpuscular Hemoglobin 30.2 pg (27.0-31.0); Mean Corpuscular Volume 93.2 fL (78.0-98.0); Mean Platelet Volume 6.3 fL (7.4-10.4); Platelet Count 479 thou/uL (130-400); RBC Distribution Width 13.6 % (11.5-14.5); Red Blood Cell (RBC) Count 3.52 mill/uL (4.20-5.40); White Blood Cell (WBC) Count 66.2 thou/uL (4.8-10.8)
[2019-11-25 03:58] LABS: Anion Gap 18 mmol/L (10-20); BUN (Urea Nitrogen) 13 mg/dL (9.8-20.1); Calc. Creatinine Clearance 85 mL/min (70-130); Calcium 8.3 mg/dL (7.8-10.44); Carbon Dioxide 20 mmol/L (23-31); Chloride 102 mmol/L (98-107); Estimated GFR-MDRD Greater than 90; Glucose 83 mg/dL (80-115); Potassium 5.2 mmol/L (3.5-5.1); Sodium 135 mmol/L (136-145)
[2019-11-25 04:13] LABS: Band 15 % (5-11); Lymphocytes 3 % (21-51); MDiff Complete? YES; Monocytes 3 % (0-10); Neutrophil 79 % (42-75); Platelet Morphology Comment Appears Increased
[2019-11-25 07:35] VITALS: TEMP 98.9
[2019-11-25] MEDS: Mometasone 100 MCG/PUFF (1 INHALER) INH SCH (08:08)
[2019-11-25] MEDS: Heparin 5,000 UNITS/ML VIAL SC SCH ×2 (10:44→15:57)
[2019-11-25] MEDS: Pantoprazole 40 MG VIAL IVP SCH (10:50)
[2019-11-25] MEDS: Sodium Chloride 0.45% 1,000 ML IV SCH (10:52)
[2019-11-25] MEDS: ALPRAZolam 0.5 MG TAB PO SCH (11:02)
[2019-11-25] MEDS: Escitalopram Oxalate 20 mg Tablet PO SCH (11:04)
[2019-11-25] MEDS: Cefdinir 300 MG CAP PO SCH (11:05)
[2019-11-25] MEDS: Benzonatate 100 MG CAP PO SCH ×2 (11:06→14:44)
[2019-11-25] MEDS: guaiFENesin ER 600 MG TAB PO SCH (11:22)
--- NOTE | 2019-11-25 13:36 | PDOC.PALPN ---
Palliative Progress Note - Subjective Bipap, labored respirations. Opens eyes, nods but extremely fatigued. - Objective Vital Signs: Vital Signs - Most Recent Temp Pulse Resp BP Pulse Ox 98.9 F 130 H 14 101/70 100 11/25/19 07:23 11/25/19 10:02 11/25/19 10:02 11/24/19 11:12 11/25/19 10:02 - Physical Exam Constitutional: cachectic, ill appearing, mild distress HEENT: moist MMs, sclera anicteric Respiratory: accessory muscle use, labored respirations Deviation from normal: Tachycardia Gastrointestinal: soft, non-tender Genitourinary: incontinent Musculoskeletal: no clubbing, pulses present Neurology: moves all 4 limbs, no focal deficits Skin: cap refill <2 seconds, fragile Psychiatric: A&O x 3 Deviation from normal: anxious - Assessment (1) Palliative care encounter Code(s): Z51.5 - ENCOUNTER FOR PALLIATIVE CARE Current Visit: Yes Status: Acute (2) Physical deconditioning Code(s): R53.81 - OTHER MALAISE Current Visit: Yes Status: Acute (3) COPD exacerbation Code(s): J44.1 - CHRONIC OBSTRUCTIVE PULMONARY DISEASE W (ACUTE) EXACERBATION Current Visit: No Status: Acute (4) Protein-calorie malnutrition, moderate Code(s): E44.0 - MODERATE PROTEIN-CALORIE MALNUTRITION Current Visit: No Status: Chronic (5) Small cell lung cancer Code(s): C34.90 - MALIGNANT NEOPLASM OF UNSP PART OF UNSP BRONCHUS OR LUNG Current Visit: No Status: Suspected - Plan Plan: Agreeable to transition to hospice. DNAR/OOHDNAR completed. Emotional support. *Patient or MPOA have no preference on hospice/CM notified and to reach out to hospice companies. *Spiritual care consult *Dr Johnson notified of hospice consult, awaiting evaluation and decision to GIP or home setting. [30] minutes spent on this encounter with >50% of the time in counseling and coordination of care. - ROS Constitutional: weakness ENT: dry mouth Respiratory: shortness of breath with extertion Psychological: anxiety
--- NOTE | 2019-11-25 14:54 | PDOC.MOPN ---
Interval History: events noted, patient somnolent, tachycardia. On Bpap - Vital Signs Vital Signs: Vital Signs (12 hours) Temp Pulse Resp Pulse Ox 11/25/19 13:49 136 H 12 100 11/25/19 10:02 130 H 14 100 11/25/19 08:05 127 H 24 H 100 11/25/19 07:40 100 11/25/19 07:23 98.9 F 11/25/19 04:00 98.2 F Weight Weight 128 lb 1.417 oz Most Recent Monitor Data Heart Rate from ECG 135 NIBP 140/98 NIBP BP-Mean 112 Respiration from ECG 21 SpO2 100 - Physical Exam General: No acute distress Lungs: Other Cardiovascular: Other (tachy) Neurological: Other (somnolent) - Labs Result Diagrams: 11/25/19 03:17 11/25/19 03:17 Lab results: Laboratory Results - last 24 hr 11/25/19 03:17: WBC 66.2 H*, RBC 3.52 L, Hgb 10.6 L, Hct 32.8 L, MCV 93.2, MCH 30.2, MCHC 32.4, RDW 13.6, Plt Count 479 H, MPV 6.3 L, Neutrophils % (Manual) 79 H, Band Neuts % (Manual) 15 H, Lymphocytes % (Manual) 3 L, Monocytes % ( Manual) 3, Lymphocytes # Not Reportable, Plt Morphology Comment Appears Increased H 11/25/19 03:17: Sodium 135 L, Potassium 5.2 H, Chloride 102, Carbon Dioxide 20 L , Anion Gap 18, BUN 13, Creatinine 0.61, Estimated GFR (MDRD) Greater than 90, Glucose 83, Calcium 8.3 Status: lab reviewed by me A/P - Problem (1) Community acquired pneumonia Current Visit: Yes Code(s): J18.9 - PNEUMONIA, UNSPECIFIED ORGANISM Status: Acute Qualifiers: Laterality: unspecified laterality Qualified Code(s): J18.9 - Pneumonia, unspecified organism (2) COPD exacerbation Current Visit: No Code(s): J44.1 - CHRONIC OBSTRUCTIVE PULMONARY DISEASE W ( ACUTE) EXACERBATION Status: Acute (3) Small cell lung cancer Current Visit: No Code(s): C34.90 - MALIGNANT NEOPLASM OF UNSP PART OF UNSP BRONCHUS OR LUNG Status: Suspected - Plan Plan: Patient and family have agreed to focus on comfort care She agrees to hospice.
--- NOTE | 2019-11-25 17:08 | PRG ---
DATE OF SERVICE: 11/25/2019 SUBJECTIVE: Ms. Steven did not do well off BiPAP at all. She is extremely weak. It is became clear that her weakness is going to be limiting factor with a COPD exacerbation. OBJECTIVE: VITAL SIGNS: Heart rates in the 130s, respiratory rates in the teens, oximetry is 100%, blood pressure 140/98. LUNGS: Remarkable for distant wheezes. HEART: Regular rhythm. ABDOMEN: Soft. LABORATORY DATA: Sodium 135, potassium 5.2, chloride 102, bicarb 20, BUN 13, creatinine 0.61. White count went to 66,000 after an inadvertent dosing of Neupogen yesterday, hemoglobin is 10.6, platelets 479,000. IMPRESSION: Respiratory failure secondary to chronic obstructive pulmonary disease exacerbation combined with muscle weakness. She is strong enough to cough up her secretions. I do not see how she can survive. Inpatient hospice is the best option for her in my opinion. Job ID: [id number]
--- NOTE | 2019-11-26 06:25 | PQF ---
EZE PICHARDO DAVID [id number] [id number] CLINICAL DOCUMENTATION CLARIFICATION FORM: POST DISCHARGE Addendum to original discharge summary date: ____ Late entry note date: __ DATE:11/26/2019 ATTN:Joel Mckeon Please exercise your independent, professional judgment in responding to the clarification form. Clinical indicators are provided on the bottom of this form for your review Please check appropriate box(es): [ ] Sepsis due to Pneumonia [ ] Severe sepsis with acute organ dysfunction of: (Examples: respiratory failure, encephalopathy, acute kidney failure, other) [ ] Septic Shock [ ] Localized infection without sepsis [ ] Other diagnosis [ x ] Unable to determine In addition, please specify: Present on Admission (POA): [ ] Yes [ ] No [ ] Unable to determine For continuity of documentation, please document condition throughout progress notes and discharge summary. Thank You. CLINICAL INDICATORS - SIGNS / SYMPTOMS / LABS Laboratory 11/18 WBC 10.6, 11/19 12.3, Neutrophils 86.5, plt count 471 Vital signs 11/18 BP122/63, pulse 78, Resp 22, Temp 98.3 ED notes p2 SIRS scoring: Yes, pt did meet at least 1 criteria Chest X-ray Impression Differential diagnosis includes noncardiogenic pulmonary interstitial edema, infectious pneumonitis and lymphangitic carcinomatosis H&P p1 11/18 Dr Malik Complaints of generalzied weakness and fever for 4 days Her symptoms were associated with nausea and vomiting in addition to SOB, wheezing and productive cough Hospitalist Pn p1 11/23 Pt admitted with Resp failure and treated for Pneumonia and COPD exacerbation RISK FACTORS H&P p1 11/18 64 year-old Female H&P p1 11/18 Former smoker H&P p2 11/18 COPD exacerbation H&P p2 11/18 Lung cancer H&P p2 11/18 Pneumonia H&P p2 11/18 HTN PN p1 11/24 Moderate PCM TREATMENTS: Admitted to ICU SEP 23 IV Azithromycin 500mg SEP 23 Provent Hfa 2puff inhaler SEP 23- IV Rocephine 2gm SEP 23 IVS olumedrol 40 mg SEP 23 IVF NS 1L SEP 24 Duoneb 3ml neb SEP 24 Zithromax 250 mg oral SEP 24 Omicef 2mg oral Chest X-ray 11/18 Pulmonology consult 11/21 Anthony Acevedo Respiratory Panel - BiPap (This form is maintained as a part of the permanent medical record) 2014 [employer] All Rights Reserved [email or web address]
--- NOTE | 2019-11-26 06:27 | PQF ---
EZE PICHARDO DAVID [id number] U-[id number] CLINICAL DOCUMENTATION CLARIFICATION FORM: POST DISCHARGE Addendum to original discharge summary date: ____ Late entry note date: __ DATE:11/26/2019 ATTN:Joel Mckeon Please exercise your independent, professional judgment in responding to the clarification form. Clinical indicators are provided on the bottom of this form for your review Please check appropriate box(s): [ ] Aspiration Pneumonia [ ] Empirically treating Gram Negative Pneumonia [ ] Empirically treating Anaerobic Pneumonia [ x ] Simple Pneumonia (community acquired - nosocomial) [ ] Pneumonia of unknown etiology [ ] Other diagnosis [ ] Unable to determine For continuity of documentation, please document condition throughout progress notes and discharge summary. Thank You. CLINICAL INDICATORS - SIGNS / SYMPTOMS / LABS Laboratory 11/18 WBC 10.6, 11/19 12.3, Neutrophils 86.5, plt count 471 Blood gas 12/19 pH7.30, pCO2 50.7, pO2 203.0, O2 content 16.6, O2 sat 99.5 Vital signs 11/18 BP122/63, pulse 78, Resp 22, Temp 98.3 Chest X-ray Impression Differential diagnosis includes noncardiogenic pulmonary interstitial edema, infectious pneumonitis and lymphangitic carcinomatosis H&P p1 11/18 Dr Malik Complaints of generalized weakness and fever for 4 days Her symptoms were associated with nausea and vomiting in addition to SOB, wheezing and productive cough H&P p2 11/18 Pneumonia Hospitalist Pn p1 11/23 Pt admitted with Resp failure and treated for Pneumonia and COPD exacerbation PN p1 11/23 Inability to effectively clear secretion PN p1 11/23 Clinical aspiration RISK FACTORS H&P p1 11/18 64 year-old Female H&P p1 11/18 Former smoker H&P p2 11/18 COPD exacerbation H&P p2 11/18 Lung cancer H&P p2 11/18 HTN PN p1 11/24 Moderate PCM TREATMENTS: Admitted to ICU SEP 23 IV Azithromycin 500mg SEP 23 Provent Hfa 2puff inhaler SEP 23- IV Rocephine 2gm SEP 23 IVS olumedrol 40 mg SEP 23 IVF NS 1L SEP 24 Duoneb 3ml neb SEP 24 Zithromax 250 mg oral SEP 24 Omicef 2mg oral Chest X-ray 11/18 Pulmonology consult 11/21 Anthony Acevedo Respiratory Panel - BiPap (This form is maintained as a part of the permanent medical record) 2014 [employer]. All Rights Reserved [email or web address]
--- NOTE | 2019-11-26 15:05 | DIS ---
DATE OF ADMISSION: 11/19/2019 DATE OF DISCHARGE: 11/25/2019 DISCHARGE DIAGNOSES: 1. Acute hypoxic respiratory failure. 2. Suspected recurrence of lung cancer. 3. Chronic obstructive pulmonary disease. 4. Community-acquired pneumonia. 5. Hypertension. 6. History of anxiety and depression. 7. Hypokalemia. 8. 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 HISTORY OF PRESENT ILLNESS: The patient is a 64-year-old female with a history of the lung cancer, who presented to the hospital with several days of fever, malaise, and nausea. She had a workup initially including CT scan, which revealed evidence of potential pneumonia versus recurrent lung cancer with several findings suggestive of that. The patient was placed in the hospital, started on antibiotics for pneumonia. She was treated with bronchodilators and steroids for COPD. She had consultation with Oncology, who subsequently ordered a bone scan, which did not reveal any evidence of bony metastases. Unfortunately, the patient had some initial improvement, but then had a fairly rapid digression to respiratory status and had to be moved to the unit on BiPAP. The patient was seen in consultation by the Palliative Care team and with discussions with the patient, she ultimately decided to move to hospice care as she was continued to have a difficult time of breathing even with significant support. She had profound weakness, having difficult time managing with the tachypneic. The hospice was felt to be appropriate by the hospitalist team, Pulmonary, Oncology, and Palliative Care team. PHYSICAL EXAMINATION: VITAL SIGNS: On the day of discharge, heart rate was 140, BP 146/101, respirations 22, and O2 saturation was 100% on BiPAP. GENERAL: The patient was awake, but very somnolent and dozed frequently. HEART: Her heart was tachycardic. LUNGS: Revealed diminished with diffuse rales bilaterally. ABDOMEN: Benign. EXTREMITIES: Had trace edema. DISPOSITION: The patient will be transferred to the care of inpatient hospice. All further disposition and management will be per the hospice team. TIME SPENT: Time spent in discharge activities greater than 30 minutes. Job ID: [id number]
--- NOTE | 2019-11-30 15:49 | EKG ---
Test Reason : STAT Blood Pressure : / mmHG Vent. Rate : 144 BPM Atrial Rate : 144 BPM P-R Int : 164 ms QRS Dur : 078 ms QT Int : 258 ms P-R-T Axes : 077 041 088 degrees QTc Int : 399 ms Sinus tachycardia T wave abnormality, consider anterior ischemia Abnormal ECG When compared with ECG of 19-NOV-2019 19:04, Vent. rate has increased BY [address] no longer depressed in Inferior leads ST no longer depressed in Anterior leads Nonspecific T wave abnormality has replaced inverted T waves in Lateral leads Confirmed by CARLOS FIORE (2) on 11/30/2019 3:49:08 PM Referred By: Randall Wright Confirmed By:CARLOS FIORE
== END 2019-11-25 16:33 | disposition hospice, inpatient (51) | DRG 193 ==
LOC: ERS 18:52 → 2SW 22:57 → OBSVTOIN 22:57 → CCU 11-23 13:34
PROVIDERS: ADMIT Internal Medicine; ATTEND Internal Medicine
PROC: 8E0ZXY6 Isolation (ICD-10-PCS; principal; 2019-11-19)
PROC: 5A09357 Assistance with Respiratory Ventilation, Less than 24 Consecutive Hours, Continuous Positive Airway Pressure (ICD-10-PCS; 2019-11-24)
DX: J18.9 Pneumonia, unspecified organism (principal); Z66 Do not resuscitate; Z20.828 Contact with and (suspected) exposure to other viral communicable diseases; Z51.5 Encounter for palliative care; J96.01 Acute respiratory failure with hypoxia; J44.1 Chronic obstructive pulmonary disease with (acute) exacerbation; J44.0 Chronic obstructive pulmonary disease with (acute) lower respiratory infection; R64 Cachexia; E44.0 Moderate protein-calorie malnutrition; C34.92 Malignant neoplasm of unspecified part of left bronchus or lung; F32.9 Major depressive disorder, single episode, unspecified; F41.9 Anxiety disorder, unspecified; I10 Essential (primary) hypertension; E87.6 Hypokalemia; Z68.21 Body mass index [BMI] 21.0-21.9, adult; Z90.710 Acquired absence of both cervix and uterus; Z90.49 Acquired absence of other specified parts of digestive tract; Z87.891 Personal history of nicotine dependence; Z85.810 Personal history of malignant neoplasm of tongue
CPT/HCPCS: 36415; 70553; 71045; 71275; 78306; 80048; 80053; 81003; 81015; 82805; 84484; 85025; 85379; 87635; 93005; 93010; 94640; 94660; 96365; A9503; A9579; C9113; J0456; J0696; J1447; J1644; J2270; J2405; J2920; J3475; J3480; J3490; J7050; J7620; Q9967; U0003

== ENCOUNTER 2019-11-25 16:39 | Inpatient (IN) | payer OTHER, MEDICAID ==
[2019-11-25] MEDS ORDERED: Morphine 4 MG/ML VIAL SLOW IVP PRN (17:14)
[2019-11-25] MEDS: Lorazepam 2 MG/ML VIAL SLOW IVP SCH ×2 (17:31→21:33)
[2019-11-25] MEDS: Scopolamine 1.5 mg/72 hour Patch TOP PRN (17:34)
[2019-11-25 17:36] VITALS: BMI 19.8
[2019-11-25] MEDS: Morphine 4 MG/ML VIAL SLOW IVP SCH (21:32)
[2019-11-26] MEDS: Morphine 4 MG/ML VIAL SLOW IVP SCH ×6 (01:14→21:31)
[2019-11-26] MEDS: Lorazepam 2 MG/ML VIAL SLOW IVP SCH ×6 (01:15→21:32)
[2019-11-26] MEDS: Atropine Sulfate 1% Ophth Soln 5 ml Bottle PO PRN ×2 (16:56→21:32)
[2019-11-27] MEDS: Morphine 4 MG/ML VIAL SLOW IVP SCH ×6 (01:20→21:36)
[2019-11-27] MEDS: Atropine Sulfate 1% Ophth Soln 5 ml Bottle PO PRN ×5 (01:20→17:53)
[2019-11-27] MEDS: Lorazepam 2 MG/ML VIAL SLOW IVP SCH ×6 (01:20→21:43)
[2019-11-28] MEDS: Morphine 4 MG/ML VIAL SLOW IVP SCH ×5 (01:13→17:16)
[2019-11-28] MEDS: Lorazepam 2 MG/ML VIAL SLOW IVP SCH ×5 (01:19→17:17)
[2019-11-28] MEDS: Atropine Sulfate 1% Ophth Soln 5 ml Bottle PO PRN (01:20)
[2019-11-28 09:19] VITALS: BP 136/72; TEMP 101.6
[2019-11-28] MEDS: Scopolamine 1.5 mg/72 hour Patch TOP PRN (13:11)
== END 2019-11-28 18:52 | disposition expired | DRG 951 ==
LOC: ONC 16:39
PROVIDERS: ADMIT Family Medicine; ATTEND Family Medicine
DX: Z51.5 Encounter for palliative care (principal); J96.01 Acute respiratory failure with hypoxia; J18.9 Pneumonia, unspecified organism; J44.0 Chronic obstructive pulmonary disease with (acute) lower respiratory infection; C34.90 Malignant neoplasm of unspecified part of unspecified bronchus or lung; J44.1 Chronic obstructive pulmonary disease with (acute) exacerbation; I10 Essential (primary) hypertension; F41.9 Anxiety disorder, unspecified; F32.9 Major depressive disorder, single episode, unspecified; E87.6 Hypokalemia; G93.89 Other specified disorders of brain; Z66 Do not resuscitate; Z20.828 Contact with and (suspected) exposure to other viral communicable diseases; Z90.49 Acquired absence of other specified parts of digestive tract; Z90.710 Acquired absence of both cervix and uterus; Z87.891 Personal history of nicotine dependence
CPT/HCPCS: J2060; J2270